=== PATIENT | male | born 1995 | race Caucasian/White ===

== ENCOUNTER 2018-04-22 17:49 | Inpatient (IN) | payer OTHER ==
[~2018-04-22] VITALS: Ht 180.3 cm; Wt 125.9 kg
[~2018-04-22 17:49] MED LIST: ONDA4SOL PO; PEPS PO; UDREG PO
[2018-04-22] MEDS ORDERED: ONDANSETRON 4 MG INJ IV STA (21:25)
[2018-04-22] MEDS ORDERED: morphine 4 MG/ML VIAL IV STA (21:25)
[2018-04-22] MEDS ORDERED: SOD CHLORIDE 0.9% 1,000 ML IV STA (21:25)
[2018-04-23] MEDS ORDERED: OMEP20CA16 PO (00:11)
[2018-04-23] MEDS ORDERED: BISM262O23 PO (00:11)
--- NOTE | 2018-04-23 00:37 | ERD ---
ER Documentation Chief Complaint Chief Complaint vomiting since 03/30/18; was seen @ [facility] HPI Is a 23-year-old male has been vomiting since March 30. He was seen in [facility] and here for intractable nausea vomiting. Mother took him home and over the past 3 days she states that he has not been eating or drinking at all. He has vomited 4-5 times nonbilious nonbloody. No fevers or chills. Patient himself is a very poor historian and there is concerned that he might have autism upon his last discharge. Mother is yet to follow-up with outpatient management for this issue. ROS All systems reviewed and are negative except as per history of present illness. Medications Home Meds Reported Medications Bismuth Subsalicylate* (Pepto-Bismol*) 262 Mg/15 Ml Oral.susp, 15 ML PO Q3H PRN for DISTENSION/GAS/BLOATING, ML 04/23/18 Discontinued Reported Medications Omeprazole* (Omeprazole*) 20 Mg Capsule.dr, 20 MG PO DAILY, #30 CAP 04/23/18 Discontinued Scripts Famotidine* (Pepcid* Susp) 40 Mg/5 Ml Oral.susp, 20 MG PO BID, #150 ML Prov:WENDY BOYLE M. 04/10/18 Metoclopramide* (Reglan*) 10 Mg/10 Ml Soln, 10 MG PO AC MEALS for 3 Days, #90 ML Prov:TG BOYLEO M. 04/10/18 Ondansetron Hcl* (Ondansetron Hcl* Liq) 4 Mg/5 Ml Solution, 4 MG PO Q6H PRN for NAUSEA AND/OR VOMITING, #75 ML Prov:WENDY BOYLE M. 04/10/18 Allergies Allergies: Coded Allergies: No Known Allergy (Unverified , 04/23/18) PMhx/Soc Medical and Surgical Hx: pt denies Surgical Hx History of Surgery: No Anesthesia Reaction: No Hx Neurological Disorder: No Hx Respiratory Disorders: No Hx Cardiac Disorders: No Hx Psychiatric Problems: No Hx Miscellaneous Medical Probl: Yes (N/V) Hx Alcohol Use: No Hx Substance Use: No Hx Tobacco Use: No Smoking Status: Never smoker Physical Exam Vitals Vital Signs Date Temp Pulse Resp B/P (MAP) Pulse Ox O2 O2 Flow FiO2 Time Delivery Rate 04/22/18 99.0 86 16 127/85 98 22:06 (99) 04/22/18 99.0 82 19 128/81 97 18:22 (97) Physical Exam Const: No acute distress Head: Atraumatic Eyes: Normal Conjunctiva ENT: Normal External Ears, Nose and Mouth. Neck: Full range of motion. No meningismus. Resp: Clear to auscultation bilaterally Cardio: Regular rate and rhythm, no murmurs Abd: Soft, non tender, non distended. Normal bowel sounds Skin: No petechiae or rashes Back: No midline or flank tenderness Ext: No cyanosis, or edema Neur: Awake and alert Psych: Normal Mood and Affect Result Diagram: 04/22/18214404/22/182144 Results 24 hrs Laboratory Tests Test 04/22/18 21:25 04/22/18 21:45 Blood Gas Specimen Source Blood arterial Arterial Blood Date Drawn 04/22/2018 10:09:03 PM Arterial Blood pH (Temp corrected) 7.477 Arterial Blood pCO2 (Temp correct) 28.2 mmhg Arterial Blood pO2 (Temp corrected) 115.6 mmHG Arterial Blood HCO3 20.4 mmol/L Arterial Blood Base Excess -1.5 mmol/L Arterial Blood Oxygen Saturation 98.3 mmHG Ishan Test ACCEPTAB Arterial Blood Gas Puncture Site Right Radial Arterial Blood Carboxyhemoglobin 0.2 % Arterial Blood Methemoglobin 0.3 % Blood Gas A-a O2 Differential 0.4 mmHg Oxyhemoglobin Percent 97.8 % Blood Gas Temperature 37.0 C Blood Gas Modality ROOM AIR FiO2 21.0 % Blood Gas Notified Whom MR Blood Gas Notified Time 04/22/2018 10:12:36 PM White Blood Count 12.8 10^3/ul Red Blood Count 5.41 10^6/ul Hemoglobin 17.8 g/dl Hematocrit 51.8 % Mean Corpuscular Volume 95.7 fl Mean Corpuscular Hemoglobin 32.9 pg Mean Corpuscular Hemoglobin Concent 34.4 g/dl Red Cell Distribution Width 13.2 % Platelet Count 186 10^3/UL Mean Platelet Volume 12.4 fl Immature Granulocytes % 0.400 % Neutrophils % 75.6 % Lymphocytes % 12.0 % Monocytes % 11.4 % Eosinophils % 0.2 % Basophils % 0.4 % Nucleated Red Blood Cells % 0.0 /100WBC Immature Granulocytes # 0.050 10^3/ul Neutrophils # 9.7 10^3/ul Lymphocytes # 1.5 10^3/ul Monocytes # 1.5 10^3/ul Eosinophils # 0.0 10^3/ul Basophils # 0.1 10^3/ul Nucleated Red Blood Cells # 0.0 10^3/ul Urine Color FLACO Urine Clarity SLIGHTLY CLOUDY Urine pH 6.0 Urine Specific [place] 1.032 Urine Ketones 2+ mg/dL Urine Nitrite NEGATIVE mg/dL Urine Bilirubin 2+ mg/dL Urine Urobilinogen 2+ mg/dL Urine Leukocyte Esterase NEGATIVE Rhiannon/ul Urine Microscopic RBC 7 /HPF Urine Microscopic WBC 11 /HPF Urine Mucus MANY /HPF Urine Hemoglobin NEGATIVE mg/dL Urine Glucose NEGATIVE mg/dL Urine Total Protein 2+ mg/dl Sodium Level 141 mmol/L Potassium Level 3.5 mmol/L Chloride Level 98 mmol/L Carbon Dioxide Level 25 mmol/L Anion Gap 18 Blood Urea Nitrogen 10 mg/dl Creatinine 0.84 mg/dl Est Glomerular Filtrat Rate mL/min > 60 mL/min Glucose Level 110 mg/dl Calcium Level 10.2 mg/dl Total Bilirubin 0.4 mg/dl Direct Bilirubin 0.00 mg/dl Indirect Bilirubin 0.4 mg/dl Aspartate Amino Transf (AST/SGOT) 63 IU/L Alanine Aminotransferase (ALT/SGPT) 34 IU/L Alkaline Phosphatase 84 IU/L Total Protein 9.1 g/dl Albumin 5.1 g/dl Globulin 4.00 g/dl Albumin/Globulin Ratio 1.27 Lipase 64 U/L Current Medications Medications Dose Sig/Izabel Start Time Status Last (Trade) Ordered Route PRN Stop Time Admin Dose Reason Admin Sodium 1,000 ml @ Q1H STAT 04/22/18 DC 04/22/18 Chloride 1,000 mls/hr IV 21:25 21:52 04/22/18 22:24 Morphine 4 mg ONCE STAT 04/22/18 DC 04/22/18 Sulfate IV 21:25 21:52 (morphine) 04/22/18 21:29 Ondansetron 4 mg ONCE STAT 04/22/18 DC 04/22/18 HCl (Zofran IV 21:25 21:52 Inj) 04/22/18 21:29 Procedures/MDM Emergency department course: Patient seen and evaluated. Intravenous access associated fluids given Zofran given. Blood work drawn off and sent. Arterial blood gas also ordered to check acid base status. EKG: Rate/Rhythm: [Normal Sinus Rhythm] QRS, ST, T-waves: [No changes consistent w/ acute ischemia] Impression: [No evidence of ischemia or arrhythmia] Chest X-ray 1V Interpreted by me: Soft Tissue: No acute abnormalities Bones: No acute abnormalities Mediastinum/Cardiac Silhouette/Lungs: [No acute abnormalities] Medical decision makin-year-old male with intractable nausea and vomiting. At this point patient will need be admitted for further evaluation and management. I spoken to Dr. Ennis of the hospitalist team who has currently accepted the patient to service. Departure Diagnosis: Primary Impression: Intractable vomiting with nausea Vomiting type: unspecified Qualified Codes: R11.2 - Nausea with vomiting, unspecified Condition: DUC Martinez Apr 23, 2018 00:37
[2018-04-23] MEDS ORDERED: DEXTROSE 5%-0.45% NACL 1,000 ML IV SCH (00:38)
[2018-04-23] MEDS ORDERED: ALBUTEROL/IPRATROPIUM (NEB) 3 ML AMP HHN PRN (01:00)
[2018-04-23] MEDS ORDERED: NACL 0.9% 3 ML SYG IV SCH (01:00)
[2018-04-23] MEDS ORDERED: ACETAMINOPHEN 325 MG TAB PO PRN (01:00)
[2018-04-23 01:20] VITALS: BP 118/61; PULSE 92; RESP 17
[2018-04-23 01:38] VITALS: Ht 180.3 cm; Wt 125.9 kg
--- NOTE | 2018-04-23 07:06 | HP ---
Date/Time of Note Date/Time of Note DATE: 04/23/18 TIME: 07:03 Assessment/Plan VTE Prophylaxis Risk score (from Nsg)>0 risk: 1 SCD applied (from Nsg): Yes Pharmacological prophylaxis: heparin Lines/Catheters IV Catheter Type (from Nrsg): Peripheral IV Assessment/Plan Assessment/Plan 23-year-old obese male with possible autism here with recurrent intractable nausea vomiting and inability to tolerate p.o. intake PLAN CT abdomen/pelvis without acute findings will place a GI consult for possible EGD Barium swallow jossue Stallworth Result Diagram: 04/23/18 0430 04/23/18 0430 Results 24hrs Laboratory Tests Test 04/22/18 21:25 04/22/18 21:45 04/23/18 04:30 Blood Gas Specimen Blood arterial Source Arterial Blood Date 04/22/2018 10:09:03 PM Drawn Arterial Blood pH 7.477 H (Temp corrected) Arterial Blood pCO2 28.2 L (Temp correct) Arterial Blood pO2 115.6 H (Temp corrected) Arterial Blood HCO3 20.4 L Arterial Blood Base -1.5 Excess Arterial Blood 98.3 H Oxygen Saturation Ishan Test ACCEPTAB Arterial Blood Gas Right Radial Puncture Site Arterial 0.2 Blood Carboxyhemoglobi n Arterial Blood 0.3 Methemoglobin Blood Gas A-a O2 0.4 L Differential Oxyhemoglobin Percent 97.8 Blood Gas Temperature 37.0 Blood Gas Modality ROOM AIR FiO2 21.0 Blood Gas Notified MR Whom Blood Gas Notified 04/22/2018 10:12:36 PM Time White Blood Count 12.8 #H 10.0 # Red Blood Count 5.41 # 4.53 L Hemoglobin 17.8 # 14.9 Hematocrit 51.8 # 43.6 Mean Corpuscular 95.7 96.2 Volume Mean Corpuscular 32.9 32.9 Hemoglobin Mean Corpuscular 34.4 34.2 Hemoglobin Concent Red Cell Distribution 13.2 13.2 Width Platelet Count 186 # 152 Mean Platelet Volume 12.4 H 12.6 H Immature Granulocytes 0.400 0.200 % Neutrophils % 75.6 71.3 Lymphocytes % 12.0 L 13.3 L Monocytes % 11.4 H 14.0 H Eosinophils % 0.2 0.8 Basophils % 0.4 0.4 Nucleated Red Blood 0.0 0.0 Cells % Immature Granulocytes 0.050 H 0.020 # Neutrophils # 9.7 H 7.1 Lymphocytes # 1.5 1.3 Monocytes # 1.5 H 1.4 H Eosinophils # 0.0 0.1 Basophils # 0.1 0.0 Nucleated Red Blood 0.0 0.0 Cells # Urine Color FLACO Urine Clarity SLIGHTLY CLOUDY A Urine pH 6.0 Urine Specific [place] 1.032 H Urine Ketones 2+ H Urine Nitrite NEGATIVE Urine Bilirubin 2+ H Urine Urobilinogen 2+ H Urine Leukocyte NEGATIVE Esterase Urine Microscopic RBC 7 H Urine Microscopic WBC 11 H Urine Mucus MANY A Urine Hemoglobin NEGATIVE Urine Glucose NEGATIVE Urine Total Protein 2+ H Sodium Level 141 140 Potassium Level 3.5 2.9 *L Chloride Level 98 101 Carbon Dioxide Level 25 26 Anion Gap 18 H 13 Blood Urea Nitrogen 10 9 Creatinine 0.84 0.67 Est Glomerular Filtrat > 60 > 60 Rate mL/min Glucose Level 110 104 Calcium Level 10.2 8.8 Total Bilirubin 0.4 0.3 Direct Bilirubin 0.00 0.00 Indirect Bilirubin 0.4 0.3 Aspartate Amino 63 H 45 Transf (AST/SGOT) Alanine 34 35 Aminotransferase (ALT/ SGPT) Alkaline Phosphatase 84 56 Total Protein 9.1 H 6.9 # Albumin 5.1 H 3.8 # Globulin 4.00 H 3.10 Albumin/Globulin Ratio 1.27 1.22 Lipase 64 Phosphorus Level 3.4 Magnesium Level 2.1 HPI/ROS Admit Date/Time Admit Date/Time Apr 23, 2018 at 00:12 Hx of Present Illness This is a 23-year-old obese male with a possible autism was brought to the ER for nausea/vomiting and inability to tolerate p.o. intake. Patient was admitted here for similar symptom about 2 weeks ago. At that time, his symptom slowly improved and was discharged. Reportedly, patient has not been eating or drinking for the past 3 days. When he presented to ER, CT abdomen/pelvis shows possible tiny gallstones otherwise no acute abdominopelvic findings. PMH/Family/Social Past Medical History Medications Current Medications Dextrose/Sodium Chloride 1,000 ml @ 125 mls/hr Q8H IV Last administered on 04/23/18at 02:06; Admin Dose 125 MLS/HR; Start 04/23/18 at 00:38 IV Flush (NS 3 ml) 3 ml PER PROTOCOL IV ; Start 04/23/18 at 01:00 Ondansetron HCl (Zofran Inj) 4 mg Q6H PRN IV NAUSEA/VOMITING; Start 04/23/18 at 01:00 Acetaminophen (Tylenol Tab) 650 mg Q6H PRN PO .PAIN 1-3 OR TEMP; Start 04/23/18 at 01:00 Famotidine (Pepcid Iv) 20 mg Q12 IV ; Start 04/23/18 at 09:00 Heparin Sodium (Porcine) (Heparin (5000 Units/1ml)) 5,000 unit Q12 SC ; Start 04/23/18 at 09:00 Albuterol/ Ipratropium (Duoneb) 3 ml Q2H RESP THERAPY PRN HHN SHORTNESS OF BREATH; Start 04/23/18 at 01:00 Potassium Chloride 100 ml @ 50 mls/hr Q2H IVPB ; Start 04/23/18 at 07:30; Stop 04/23/18 at 11:29 Coded Allergies: No Known Allergy (Unverified , 04/23/18) Past Surgical History Past Surgical Hx: no surgical history Family History Significant Family History: no pertinent family hx Social History Smoking Status: Never smoker Exam/Review of Systems Vital Signs Vitals Vital Signs Date Temp Pulse Resp B/P (MAP) Pulse Ox O2 O2 Flow FiO2 Time Delivery Rate 04/23/18 97.7 92 17 118/61 98 Room Air 01:20 (80) Intake and Output 04/22/18 04/22/18 04/23/18 1414:59 22:59 06:59 IntakeIntake Total 1375 ml BalanceBalance 1375 ml Exam Exam Past Surgical History Past Surgical Hx: other (see hpi) Family History Significant Family History: no pertinent family hx Social History Alcohol Use: other Smoking Status: Unknown if ever smoked Drug Use: none, other Exam Constitutional: other (no acute distress) Head: normocephalic, atraumatic Eyes: PERRL Respiratory: clear to auscultation Cardiovascular: regular rate and rhythm Gastrointestinal: soft DUC FLANAGAN MD Apr 23, 2018 07:06
[2018-04-23 07:30] VITALS: BP 121/59; PULSE 82; RESP 18
[2018-04-23] MEDS: POTASSIUM CHLORIDE 100 ML IVPB SCH ×2 (08:14→16:08)
[2018-04-23] MEDS: ONDANSETRON 4 MG INJ IV PRN ×2 (08:44→20:00)
[2018-04-23] MEDS ORDERED: FAMOTIDINE 20 MG INJ IV SCH (09:00)
[2018-04-23] MEDS: HEPARIN 5,000 UNIT/1 ML VIAL SC SCH ×2 (09:00→20:51)
[2018-04-23] MEDS: PANTOPRAZOLE 40 MG INJ IV SCH ×2 (10:14→18:49)
--- NOTE | 2018-04-23 13:52 | PN ---
Date/Time of Note Date/Time of Note DATE: 04/23/18 TIME: 13:52 Objective Vitals Vital Signs Date Temp Pulse Resp B/P (MAP) Pulse Ox O2 O2 Flow FiO2 Time Delivery Rate 04/23/18 98.2 82 18 121/59 99 Room Air 07:30 (79) Intake and Output 04/22/18 04/22/18 04/23/18 1515:00 23:00 07:00 IntakeIntake Total 1375 ml BalanceBalance 1375 ml Results Result Diagram: 04/23/1842904/23/18429 Medications Medications Current Medications Dextrose/Sodium Chloride 1,000 ml @ 125 mls/hr Q8H IV Last administered on 04/23/18at 02:06; Admin Dose 125 MLS/HR; Start 04/23/18 at 00:38 IV Flush (NS 3 ml) 3 ml PER PROTOCOL IV ; Start 04/23/18 at 01:00 Ondansetron HCl (Zofran Inj) 4 mg Q6H PRN IV NAUSEA/VOMITING Last administered on 04/23/18at 08:44; Admin Dose 4 MG; Start 04/23/18 at 01:00 Acetaminophen (Tylenol Tab) 650 mg Q6H PRN PO .PAIN 1-3 OR TEMP; Start 04/23/18 at 01:00 Heparin Sodium (Porcine) (Heparin (5000 Units/1ml)) 5,000 unit Q12 SC ; Start 04/23/18 at 09:00 Albuterol/ Ipratropium (Duoneb) 3 ml Q2H RESP THERAPY PRN HHN SHORTNESS OF BREATH; Start 04/23/18 at 01:00 Pantoprazole (Protonix Iv) 40 mg BID@06,18 IV Last administered on 04/23/18at 10:14; Admin Dose 40 MG; Start 04/23/18 at 09:30 VTE Prophylaxis Risk score (from Nsg)>0 risk: 0 SCD applied (from Nsg): Yes Lines/Catheters IV Catheter Type: [place] in Place: No Assessment/Plan Hospital Course Subjective Patient has no abdominal pain but still complains of nausea Objective Physical exam General: Patient is laying in bed and answers questions appropriately but intermittently Mentation: Patient is alert but questionable orientation Head: Normocephalic atraumatic Eyes: EOMI, pupils reactive to light Neck: Supple, nontender, midline Respiratory: Clear to auscultation bilaterally Cardiovascular: regular rate, no obvious murmurs Gastrointestinal: non-tender to palpation, bowel sounds heard. Neurological: Moves all extremities spontaneously Skin: No new skin lesions Assessment and plan Nausea, vomiting, inability to tolerate p.o. -Patient unable to tolerate barium for swallow eval, -GI consulted -CT abdomen pelvis without acute findings -Protonix twice a day for now -IV fluid Autism spectrum -Monitor, chronic -Patient does speak just very intermittently Electrolyte derangement -Replete as needed Disposition -Follow GI recommendations ASHISH PRESLEY Apr 23, 2018 13:52
[2018-04-23 14:56] VITALS: BP 116/62; PULSE 88; RESP 19
[2018-04-23] MEDS: D5W-0.45 NACL + KCL 20 MEQ 1,000 ML IV SCH (16:48)
--- NOTE | 2018-04-23 16:50 | CONS ---
Assessment/Plan Assessment/Plan Hospital Course (Demo Recall) Summary Assessment and Plan: Assessment: Persistent nausea/vomiting Obesity Possible diagnosis of autism Plan: Continue PPI BID Anti-emetic therapy CT without evidence of ileus or obstruction- will add Reglan EGD tomorrow Endoscopy - risks/benefits/alternatives/indications of procedure and s edation/anesthesia discussed with patient who states understanding and gives informed consent to proceed. Consider further testing i.e. video swallow gastric emptying study when patient able to tolerate Po intake and if EGD is negative Patient seen in collaboration with Dr. Castaneda CC: DOMITILA CASTANEDA MD ; Consultation Date/Type/Reason Admit Date/Time Apr 23, 2018 at 00:12 Date of Consultation: Apr 23, 2018 Type of Consult GI Reason for Consultation Persistent nausea/vomiting Date/Time of Note DATE: 04/23/18 TIME: 16:45 Hx of Present Illness This is a 23-year-old male with possible history of autism who presented to [facility] ED with complaints of persistent nausea/vomiting. Patient states symptoms initially began at the end of February however symptoms began to worsen. He notes nausea/vomiting is not aggravated by anything in particular the pain is better with antiemetic medication. He denies hematemesis, hemato chezia, or melena. Patient denies marijuana use however states his brother smokes frequently near him. Discussed plan for upper endoscopy reviewed risk/benefits of sedation and procedure patient verbalized understanding is agreeable to procedure. He feels he is able to tolerate ice chips, will order clear liquid dit today with plan to change to NPO after 04/24/18 at 0800. Review of Systems: A 12 system, review was conducted and is negative except as noted in the HPI or here. Past Medical History Home Meds Reported Medications Bismuth Subsalicylate* (Pepto-Bismol*) 262 Mg/15 Ml Oral.susp, 15 ML PO Q3H PRN for DISTENSION/GAS/BLOATING, ML 04/23/18 Discontinued Reported Medications Omeprazole* (Omeprazole*) 20 Mg Capsule.dr, 20 MG PO DAILY, #30 CAP 04/23/18 Discontinued Scripts Famotidine* (Pepcid* Susp) 40 Mg/5 Ml Oral.susp, 20 MG PO BID, #150 ML Prov:WENDY BOYLE 04/10/18 Metoclopramide* (Reglan*) 10 Mg/10 Ml Soln, 10 MG PO AC MEALS for 3 Days, #90 ML Prov:WENDY BOYLE. 04/10/18 Ondansetron Hcl* (Ondansetron Hcl* Liq) 4 Mg/5 Ml Solution, 4 MG PO Q6H PRN for NAUSEA AND/OR VOMITING, #75 ML Prov:WENDY BOYLE M. 04/10/18 Medications Current Medications IV Flush (NS 3 ml) 3 ml PER PROTOCOL IV ; Start 04/23/18 at 01:00 Ondansetron HCl (Zofran Inj) 4 mg Q6H PRN IV NAUSEA/VOMITING Last administered on 04/23/18at 08:44; Admin Dose 4 MG; Start 04/23/18 at 01:00 Acetaminophen (Tylenol Tab) 650 mg Q6H PRN PO .PAIN 1-3 OR TEMP; Start 04/23/18 at 01:00 Heparin Sodium (Porcine) (Heparin (5000 Units/1ml)) 5,000 unit Q12 SC ; Start 04/23/18 at 09:00 Albuterol/ Ipratropium (Duoneb) 3 ml Q2H RESP THERAPY PRN HHN SHORTNESS OF BREATH; Start 04/23/18 at 01:00 Pantoprazole (Protonix Iv) 40 mg BID@06,18 IV Last administered on 04/23/18at 10:14; Admin Dose 40 MG; Start 04/23/18 at 09:30 Potassium Chloride/Dextrose/ Sod Cl 1,000 ml @ 125 mls/hr Q8H IV ; Start 04/23/18 at 15:30 Allergies: Coded Allergies: No Known Allergy (Unverified , 04/23/18) Past Surgical History Past Surgical Hx: no surgical history Social History Smoking Status: Never smoker Exam/Review of Systems Exam Vitals Vital Signs Date Temp Pulse Resp B/P (MAP) Pulse Ox O2 O2 Flow FiO2 Time Delivery Rate 04/23/18 97.2 88 19 116/62 96 14:56 (80) 04/23/18 Room Air 07:30 Intake and Output 04/22/18 04/22/18 04/23/18 1515:00 23:00 07:00 IntakeIntake Total 1375 ml BalanceBalance 1375 ml Exam PHYSICAL EXAMINATION: GENERAL: Obese, alert & oriented x 3, in no acute distress SKIN: No lesions. EYES: Pupils equal reactive to light, no discharge. EARS/NOSE AND THROAT: Ears normal. NECK: Supple CHEST: Inspection within normal limits. CARDIOVASCULAR: Heart: Regular rate and rhythm RESPIRATORY: Lungs clear to auscultation GASTROINTESTINAL AND LIVER: Abdomen: Soft, non tenderness, non-distended, no hernias, no masses, no organomegaly, no ascites, no guarding, no rebound tenderness, normoactive bowel sounds. Rectal: Deferred. EXTREMITIES: No cyanosis, clubbing or edema. Results Result Diagram: 04/23/18 0430 04/23/18 0430 Results 24hrs Laboratory Tests Test 04/22/18 21:25 04/22/18 21:45 04/23/18 04:30 Blood Gas Specimen Blood arterial Source Arterial Blood Date 04/22/2018 10:09:03 PM Drawn Arterial Blood pH 7.477 H (Temp corrected) Arterial Blood pCO2 28.2 L (Temp correct) Arterial Blood pO2 115.6 H (Temp corrected) Arterial Blood HCO3 20.4 L Arterial Blood Base -1.5 Excess Arterial Blood 98.3 H Oxygen Saturation Ishan Test ACCEPTAB Arterial Blood Gas Right Radial Puncture Site Arterial 0.2 Blood Carboxyhemoglobi n Arterial Blood 0.3 Methemoglobin Blood Gas A-a O2 0.4 L Differential Oxyhemoglobin Percent 97.8 Blood Gas Temperature 37.0 Blood Gas Modality ROOM AIR FiO2 21.0 Blood Gas Notified MR Whom Blood Gas Notified 04/22/2018 10:12:36 PM Time White Blood Count 12.8 #H 10.0 # Red Blood Count 5.41 # 4.53 L Hemoglobin 17.8 # 14.9 Hematocrit 51.8 # 43.6 Mean Corpuscular 95.7 96.2 Volume Mean Corpuscular 32.9 32.9 Hemoglobin Mean Corpuscular 34.4 34.2 Hemoglobin Concent Red Cell Distribution 13.2 13.2 Width Platelet Count 186 # 152 Mean Platelet Volume 12.4 H 12.6 H Immature Granulocytes 0.400 0.200 % Neutrophils % 75.6 71.3 Lymphocytes % 12.0 L 13.3 L Monocytes % 11.4 H 14.0 H Eosinophils % 0.2 0.8 Basophils % 0.4 0.4 Nucleated Red Blood 0.0 0.0 Cells % Immature Granulocytes 0.050 H 0.020 # Neutrophils # 9.7 H 7.1 Lymphocytes # 1.5 1.3 Monocytes # 1.5 H 1.4 H Eosinophils # 0.0 0.1 Basophils # 0.1 0.0 Nucleated Red Blood 0.0 0.0 Cells # Urine Color FLACO Urine Clarity SLIGHTLY CLOUDY A Urine pH 6.0 Urine Specific [place] 1.032 H Urine Ketones 2+ H Urine Nitrite NEGATIVE Urine Bilirubin 2+ H Urine Urobilinogen 2+ H Urine Leukocyte NEGATIVE Esterase Urine Microscopic RBC 7 H Urine Microscopic WBC 11 H Urine Mucus MANY A Urine Hemoglobin NEGATIVE Urine Glucose NEGATIVE Urine Total Protein 2+ H Sodium Level 141 140 Potassium Level 3.5 2.9 *L Chloride Level 98 101 Carbon Dioxide Level 25 26 Anion Gap 18 H 13 Blood Urea Nitrogen 10 9 Creatinine 0.84 0.67 Est Glomerular Filtrat > 60 > 60 Rate mL/min Glucose Level 110 104 Calcium Level 10.2 8.8 Total Bilirubin 0.4 0.3 Direct Bilirubin 0.00 0.00 Indirect Bilirubin 0.4 0.3 Aspartate Amino 63 H 45 Transf (AST/SGOT) Alanine 34 35 Aminotransferase (ALT/ SGPT) Alkaline Phosphatase 84 56 Total Protein 9.1 H 6.9 # Albumin 5.1 H 3.8 # Globulin 4.00 H 3.10 Albumin/Globulin Ratio 1.27 1.22 Lipase 64 Phosphorus Level 3.4 Magnesium Level 2.1 Medications Medication Current Medications IV Flush (NS 3 ml) 3 ml PER PROTOCOL IV ; Start 04/23/18 at 01:00 Ondansetron HCl (Zofran Inj) 4 mg Q6H PRN IV NAUSEA/VOMITING Last administered on 04/23/18at 08:44; Admin Dose 4 MG; Start 04/23/18 at 01:00 Acetaminophen (Tylenol Tab) 650 mg Q6H PRN PO .PAIN 1-3 OR TEMP; Start 04/23/18 at 01:00 Heparin Sodium (Porcine) (Heparin (5000 Units/1ml)) 5,000 unit Q12 SC ; Start 04/23/18 at 09:00 Albuterol/ Ipratropium (Duoneb) 3 ml Q2H RESP THERAPY PRN HHN SHORTNESS OF BREATH; Start 04/23/18 at 01:00 Pantoprazole (Protonix Iv) 40 mg BID@,18 IV Last administered on 04/23/18at 10:14; Admin Dose 40 MG; Start 04/23/18 at 09:30 Potassium Chloride/Dextrose/ Sod Cl 1,000 ml @ 125 mls/hr Q8H IV ; Start 04/23/18 at 15:30 SANDRA MATHIAS Apr 23, 2018 16:50
[2018-04-23] MEDS ORDERED: METOCLOPRAMIDE 10 MG INJ IV PRN (17:30)
[2018-04-23 19:15] VITALS: BP 109/61; PULSE 84; RESP 16
[2018-04-24] VITALS (10 sets, daily range): BP systolic 96–114; BP diastolic 50–66; PULSE 69–81; RESP 18–25
[2018-04-24] MEDS: D5W-0.45 NACL + KCL 20 MEQ 1,000 ML IV SCH ×4 (00:32→21:55)
[2018-04-24] MEDS ORDERED: LORAZEPAM 2 MG INJ IV ONE (01:30)
[2018-04-24] MEDS: PANTOPRAZOLE 40 MG INJ IV SCH ×2 (05:23→18:17)
[2018-04-24] MEDS ORDERED: PROPOFOL 200 MG INJ ONE (07:00)
--- NOTE | 2018-04-24 12:06 | PREAC ---
Date/Time of Note Date/Time of Note DATE: 04/24/18 TIME: 12:04 Anesthesia Eval and Record Evaluation Time Pre-Procedure Interview DATE: 04/24/18 TIME: 12:04 Age 23 Sex male NPO: 8 hrs Preoperative diagnosis intractable nausea vomiting Planned procedure EGD Past Medical History Past Medical History: Includes GI: Obesity, Morbid obesity Surgery & Anesthesia Issues No known issue Meds Anticoagulation: No Beta Seymour within 24 hr: No Reason Beta Seymour not given: Pt. not on B-Seymour Reported Medications Bismuth Subsalicylate* (Pepto-Bismol*) 262 Mg/15 Ml Oral.susp, 15 ML PO Q3H PRN for DISTENSION/GAS/BLOATING, ML 04/23/18 Discontinued Reported Medications Omeprazole* (Omeprazole*) 20 Mg Capsule.dr, 20 MG PO DAILY, #30 CAP 04/23/18 Discontinued Scripts Famotidine* (Pepcid* Susp) 40 Mg/5 Ml Oral.susp, 20 MG PO BID, #150 ML Prov:WENDY BOYLE 04/10/18 Metoclopramide* (Reglan*) 10 Mg/10 Ml Soln, 10 MG PO AC MEALS for 3 Days, #90 ML Prov:WENDY BOYLE . 04/10/18 Ondansetron Hcl* (Ondansetron Hcl* Liq) 4 Mg/5 Ml Solution, 4 MG PO Q6H PRN for NAUSEA AND/OR VOMITING, #75 ML Prov:WENDY BYOLE . 04/10/18 Current Medications IV Flush (NS 3 ml) 3 ml PER PROTOCOL IV ; Start 04/23/18 at 01:00 Ondansetron HCl (Zofran Inj) 4 mg Q6H PRN IV NAUSEA/VOMITING Last administered on 04/23/18at 20:00; Admin Dose 4 MG; Start 04/23/18 at 01:00 Acetaminophen (Tylenol Tab) 650 mg Q6H PRN PO .PAIN 1-3 OR TEMP; Start 04/23/18 at 01:00 Albuterol/ Ipratropium (Duoneb) 3 ml Q2H RESP THERAPY PRN HHN SHORTNESS OF BREATH; Start 04/23/18 at 01:00 Pantoprazole (Protonix Iv) 40 mg BID@06,18 IV Last administered on 04/24/18at 05:23; Admin Dose 40 MG; Start 04/23/18 at 09:30 Potassium Chloride/Dextrose/ Sod Cl 1,000 ml @ 125 mls/hr Q8H IV Last administered on 04/24/18at 08:34; Admin Dose 125 MLS/HR; Start 04/23/18 at 15:30 Metoclopramide HCl (Reglan) 10 mg Q6H PRN IV NAUSEA AND/OR VOMITING Last administered on 04/24/18at 00:36; Admin Dose 10 MG; Start 04/23/18 at 17:30 Heparin Sodium (Porcine) (Heparin (5000 Units/1ml)) 5,000 unit Q12 SC ; Start 04/24/18 at 21:00 Meds reviewed: Yes Allergies Coded Allergies: No Known Allergy (Unverified , 04/23/18) Allergies Reviewed: Yes Labs/Studies Labs Reviewed: Reviewed by anesthesiologist Result Diagram: 04/24/18 0439 04/24/18 0439 Laboratory Tests 04/24/18 04:39 test: N/A Studies: CXR (The lungs are clear.) Pre-procedure Exam Last vitals Vital Signs Date Temp Pulse Resp B/P (MAP) Pulse Ox O2 O2 Flow FiO2 Time Delivery Rate 04/24/18 98.0 69 18 107/58 94 Room Air 08:02 (74) Airway: Adequate mouth opening Mallampati: Mallampati II Teeth: Normal Lung: Normal Heart: Normal ASA Physical Status ASA physical status: 2 Emergency: None Planned Anesthetic General/MAC: MAC Pre-operative Attestations Prior to commencing anesthesia and surgery, the patient was re-evaluated, there was verification of: *The patient's identity *The results of appropriate recent lab work and preoperative vital signs *The above evaluation not changing prior to induction *Anesthetic plan, risk benefits, alternative and complications discussed with patient/family; questions answered; patient/family understands, accepts and wishes to proceed. ROSE RABAGO Apr 24, 2018 12:06
[2018-04-24] MEDS ORDERED: METOCLOPRAMIDE 10 MG INJ IV PRN ×2 (12:30→13:30)
[2018-04-24] MEDS ORDERED: ONDANSETRON 4 MG INJ IV PRN ×2 (12:30→13:30)
--- NOTE | 2018-04-24 12:38 | PN ---
Date/Time of Note Date/Time of Note DATE: 04/24/18 TIME: 12:37 Objective Vitals Vital Signs Date Temp Pulse Resp B/P (MAP) Pulse Ox O2 O2 Flow FiO2 Time Delivery Rate 04/24/18 98.0 69 18 107/58 94 Room Air 08:02 (74) Intake and Output 04/23/18 04/23/18 04/24/18 1515:00 23:00 07:00 IntakeIntake Total 770 ml 1625 ml BalanceBalance 770 ml 1625 ml Results Result Diagram: 04/24/18 0439 04/24/18 0439 Medications Medications Current Medications IV Flush (NS 3 ml) 3 ml PER PROTOCOL IV ; Start 04/23/18 at 01:00 Ondansetron HCl (Zofran Inj) 4 mg Q6H PRN IV NAUSEA/VOMITING Last administered on 04/23/18at 20:00; Admin Dose 4 MG; Start 04/23/18 at 01:00 Acetaminophen (Tylenol Tab) 650 mg Q6H PRN PO .PAIN 1-3 OR TEMP; Start 04/23/18 at 01:00 Albuterol/ Ipratropium (Duoneb) 3 ml Q2H RESP THERAPY PRN HHN SHORTNESS OF BREATH; Start 04/23/18 at 01:00 Pantoprazole (Protonix Iv) 40 mg BID@06,18 IV Last administered on 04/24/18at 05:23; Admin Dose 40 MG; Start 04/23/18 at 09:30 Potassium Chloride/Dextrose/ Sod Cl 1,000 ml @ 125 mls/hr Q8H IV Last administered on 04/24/18at 08:34; Admin Dose 125 MLS/HR; Start 04/23/18 at 15:30 Metoclopramide HCl (Reglan) 10 mg Q6H PRN IV NAUSEA AND/OR VOMITING Last adm inistered on 04/24/18at 00:36; Admin Dose 10 MG; Start 04/23/18 at 17:30 Heparin Sodium (Porcine) (Heparin (5000 Units/1ml)) 5,000 unit Q12 SC ; Start 04/24/18 at 21:00 Ondansetron HCl (Zofran Inj) 4 mg PACU ORDER PRN IV NAUSEA/VOMITING; Start 04/24/18 at 12:30; Stop 04/24/18 at 17:00 Metoclopramide HCl (Reglan) 10 mg PACU ORDER PRN IV NAUSEA/VOMITING; Start 04/24/18 at 12:30; Stop 04/24/18 at 17:00 VTE Prophylaxis Risk score (from Nsg)>0 risk: 1 SCD applied (from Ns): Yes Lines/Catheters IV Catheter Type: Kapadia in Place: No Assessment/Plan Hospital Course Subjective Patient has no abdominal pain but still complains of nausea Objective Physical exam General: Patient is laying in bed and answers questions appropriately but intermittently Mentation: Patient is alert but questionable orientation Head: Normocephalic atraumatic Eyes: EOMI, pupils reactive to light Neck: Supple, nontender, midline Respiratory: Clear to auscultation bilaterally Cardiovascular: regular rate, no obvious murmurs Gastrointestinal: non-tender to palpation, bowel sounds heard. Neurological: Moves all extremities spontaneously Skin: No new skin lesions Assessment and plan Nausea, vomiting, inability to tolerate p.o. -Patient unable to tolerate barium for swallow eval, -GI consulted -CT abdomen pelvis without acute findings -Protonix twice a day for now -IV fluid Autism spectrum -Monitor, chronic -Patient does speak just very intermittently Electrolyte derangement -Replete as needed Disposition -EGD today ASHISH PRESLEY Apr 24, 2018 12:38
--- NOTE | 2018-04-24 13:22 | PAC ---
Date/Time of Note Date/Time of Note DATE: 04/24/18 TIME: 13:21 Post-Anesthesia Notes Post-Anesthesia Note Last documented vital signs Vital Signs Date Temp Pulse Resp B/P (MAP) Pulse Ox O2 O2 Flow FiO2 Time Delivery Rate 04/24/18 98.0 69 18 107/58 94 Room Air 13:20 (74) Activity: WNL Respiratory function: WNL Cardiovascular function: WNL Mental status: Baseline Pain reasonably controlled: Yes Hydration appropriate: Yes Nausea/Vomiting absent: Yes YOJANA BUNN MD Apr 24, 2018 13:22
[2018-04-24] MEDS ORDERED: MIDAZOLAM 1 MG/ML 2 ML INJ IV PRN (13:30)
[2018-04-24] MEDS ORDERED: LORAZEPAM 2 MG INJ IV PRN (13:30)
[2018-04-24] MEDS ORDERED: FENTAnyl 50 MCG/ML VIAL IV PRN ×2 (13:30)
[2018-04-24] MEDS: METOCLOPRAMIDE 10 MG INJ IV SCH ×2 (18:17→23:27)
[2018-04-24] MEDS: HEPARIN 5,000 UNIT/1 ML VIAL SC SCH (20:14)
[2018-04-25 02:15] VITALS: BP 112/57; PULSE 78; RESP 18
[2018-04-25] MEDS: D5W-0.45 NACL + KCL 20 MEQ 1,000 ML IV SCH ×3 (05:58→21:41)
[2018-04-25] MEDS: PANTOPRAZOLE 40 MG INJ IV SCH ×2 (06:00→17:29)
[2018-04-25] MEDS: METOCLOPRAMIDE 10 MG INJ IV SCH ×4 (06:00→23:30)
[2018-04-25 07:34] VITALS: BP 110/71; PULSE 73; RESP 18
[2018-04-25] MEDS: HEPARIN 5,000 UNIT/1 ML VIAL SC SCH ×2 (09:07→21:47)
--- NOTE | 2018-04-25 12:03 | PN ---
Date/Time of Note Date/Time of Note DATE: 04/25/18 TIME: 12:02 Objective Vitals Vital Signs Date Temp Pulse Resp B/P (MAP) Pulse Ox O2 O2 Flow FiO2 Time Delivery Rate 04/25/18 98.2 73 18 110/71 95 Room Air 07:34 (84) 04/24/18 10 13:16 Intake and Output 04/24/18 04/24/18 04/25/18 1515:00 23:00 07:00 IntakeIntake Total 375 ml 1820 ml 1000 ml BalanceBalance 375 ml 1820 ml 1000 ml Results Result Diagram: 04/25/1851504/25/18515 Medications Medications Current Medications IV Flush (NS 3 ml) 3 ml PER PROTOCOL IV ; Start 04/23/18 at 01:00 Ondansetron HCl (Zofran Inj) 4 mg Q6H PRN IV NAUSEA/VOMITING Last administered on 04/23/18at 20:00; Admin Dose 4 MG; Start 04/23/18 at 01:00 Acetaminophen (Tylenol Tab) 650 mg Q6H PRN PO .PAIN 1-3 OR TEMP; Start 04/23/18 at 01:00 Albuterol/ Ipratropium (Duoneb) 3 ml Q2H RESP THERAPY PRN HHN SHORTNESS OF BREATH; Start 04/23/18 at 01:00 Pantoprazole (Protonix Iv) 40 mg BID@06,18 IV Last administered on 04/25/18at 06:00; Admin Dose 40 MG; Start 04/23/18 at 09:30 Potassium Chloride/Dextrose/ Sod Cl 1,000 ml @ 125 mls/hr Q8H IV Last administered on 04/25/18at 05:58; Admin Dose 125 MLS/HR; Start 04/23/18 at 15:30 Heparin Sodium (Porcine) (Heparin (5000 Units/1ml)) 5,000 unit Q12 SC Last administered on 04/25/18at 09:07; Admin Dose 5,000 UNIT; Start 04/24/18 at 21:00 Metoclopramide HCl (Reglan) 10 mg Q6H IV Last administered on 04/25/18at 11:58; Admin Dose 10 MG; Start 04/24/18 at 17:30 VTE Prophylaxis Risk score (from Nsg)>0 risk: 1 SCD applied (from Nsg): Yes Lines/Catheters IV Catheter Type: Kapadia in Place: No Assessment/Plan Hospital Course Subjective Patient has no abdominal pain but still complains of nausea Objective Physical exam General: Patient is laying in bed and answers questions appropriately but intermittently Mentation: Patient is alert but questionable orientation Head: Normocephalic atraumatic Eyes: EOMI, pupils reactive to light Neck: Supple, nontender, midline Respiratory: Clear to auscultation bilaterally Cardiovascular: regular rate, no obvious murmurs Gastrointestinal: non-tender to palpation, bowel sounds heard. Neurological: Moves all extremities spontaneously Skin: No new skin lesions Assessment and plan Nausea, vomiting, inability to tolerate p.o. -Patient unable to tolerate barium for swallow eval, -GI consulted, EGD findings consistent with moderate ulcerative gastritis -CT abdomen pelvis without acute findings -Protonix twice a day for now -IV fluid -Continue Reglan scheduled -Continue Carafate Autism spectrum -Monitor, chronic Electrolyte derangement -Replete as needed Disposition -Monitor diet, DC when able to tolerate diet. ASHISH PRESLEY Apr 25, 2018 12:03
[2018-04-25] MEDS: SUCRALFATE (100 MG/ML) 10ML CUP PO SCH ×3 (13:38→21:38)
--- NOTE | 2018-04-25 14:24 | PN ---
Date/Time of Note Date/Time of Note DATE: 04/25/18 TIME: 14:20 Assessment/Plan VTE Prophylaxis Risk score (from Ns)>0 risk: 1 SCD applied (from Ns): Yes Pharmacological prophylaxis: other (scds) Lines/Catheters IV [facility] Type (from [facility] Urinary Cath still in place: No Assessment/Plan Hospital Course Summary Assessment and Plan: Assessment: Persistent nausea/vomiting EGD 04/24/18 Mild distal esophagitis Moderate erosive gastritis. Rule out H. pylori infection biopsies obtained Otherwise normal EGD Obesity Possible diagnosis of autism Plan: Continue PPI BID Carafate added Advance diet as tolerated Await bx results Patient seen in collaboration with Dr. Castaneda/Naty Subjective: Course reviewed with nursing staff Patient interviewed and examined All labs, imaging and other results reviewed The patient resting in bed, x1 episodes of emesis today Pt states he is scared to go home. Currently no c/o n.v or abd pain Pt will stay over night, reassess sx tomorrow, PHYSICAL EXAMINATION: GENERAL: Obese, alert & oriented x 3, in no acute distress SKIN: No lesions. EYES: Pupils equal reactive to light, no discharge. EARS/NOSE AND THROAT: Ears normal. NECK: Supple CHEST: Inspection within normal limits. CARDIOVASCULAR: Heart: Regular rate and rhythm RESPIRATORY: Lungs clear to auscultation GASTROINTESTINAL AND LIVER: Abdomen: Soft, non tenderness, non-distended, no hernias, no masses, no organomegaly, no ascites, no guarding, no rebound tenderness, normoactive bowel sounds. Rectal: Deferred. EXTREMITIES: No cyanosis, clubbing or edema. Result Diagram: 04/25/18 0516 04/25/18 0516 Results 24hrs Laboratory Tests Test 04/25/18 05:16 White Blood Count 6.8 # Red Blood Count 4.15 L Hemoglobin 13.8 L Hematocrit 40.6 L Mean Corpuscular Volume 97.8 Mean Corpuscular Hemoglobin 33.3 H Mean Corpuscular Hemoglobin Concent 34.0 Red Cell Distribution Width 13.6 Platelet Count 129 L Mean Platelet Volume 12.8 H Immature Granulocytes % 0.300 Neutrophils % 63.4 Lymphocytes % 20.9 Monocytes % 14.0 H Eosinophils % 1.0 Basophils % 0.4 Nucleated Red Blood Cells % 0.0 Immature Granulocytes # 0.020 Neutrophils # 4.3 Lymphocytes # 1.4 Monocytes # 1.0 H Eosinophils # 0.1 Basophils # 0.0 Nucleated Red Blood Cells # 0.0 Sodium Level 142 Potassium Level 3.7 Chloride Level 105 Carbon Dioxide Level 27 Anion Gap 10 Blood Urea Nitrogen 4 L Creatinine 0.79 Est Glomerular Filtrat Rate mL/min > 60 Glucose Level 100 Calcium Level 8.7 Phosphorus Level 3.3 Magnesium Level 1.9 Exam/Review of Systems Exam Vitals Vital Signs Date Temp Pulse Resp B/P (MAP) Pulse Ox O2 O2 Flow FiO2 Time Delivery Rate 04/25/18 98.2 73 18 110/71 95 Room Air 07:34 (84) 04/24/18 10 13:16 Intake and Output 04/24/18 04/24/18 04/25/18 1515:00 23:00 07:00 IntakeIntake Total 375 ml 1820 ml 1000 ml BalanceBalance 375 ml 1820 ml 1000 ml Results Results 24hrs Laboratory Tests Test 04/25/18 05:16 White Blood Count 6.8 # Red Blood Count 4.15 L Hemoglobin 13.8 L Hematocrit 40.6 L Mean Corpuscular Volume 97.8 Mean Corpuscular Hemoglobin 33.3 H Mean Corpuscular Hemoglobin Concent 34.0 Red Cell Distribution Width 13.6 Platelet Count 129 L Mean Platelet Volume 12.8 H Immature Granulocytes % 0.300 Neutrophils % 63.4 Lymphocytes % 20.9 Monocytes % 14.0 H Eosinophils % 1.0 Basophils % 0.4 Nucleated Red Blood Cells % 0.0 Immature Granulocytes # 0.020 Neutrophils # 4.3 Lymphocytes # 1.4 Monocytes # 1.0 H Eosinophils # 0.1 Basophils # 0.0 Nucleated Red Blood Cells # 0.0 Sodium Level 142 Potassium Level 3.7 Chloride Level 105 Carbon Dioxide Level 27 Anion Gap 10 Blood Urea Nitrogen 4 L Creatinine 0.79 Est Glomerular Filtrat Rate mL/min > 60 Glucose Level 100 Calcium Level 8.7 Phosphorus Level 3.3 Magnesium Level 1.9 Medications Medication Current Medications IV Flush (NS 3 ml) 3 ml PER PROTOCOL IV ; Start 04/23/18 at 01:00 Ondansetron HCl (Zofran Inj) 4 mg Q6H PRN IV NAUSEA/VOMITING Last administered on 04/23/18at 20:00; Admin Dose 4 MG; Start 04/23/18 at 01:00 Acetaminophen (Tylenol Tab) 650 mg Q6H PRN PO .PAIN 1-3 OR TEMP; Start 04/23/18 at 01:00 Albuterol/ Ipratropium (Duoneb) 3 ml Q2H RESP THERAPY PRN HHN SHORTNESS OF BREATH; Start 04/23/18 at 01:00 Pantoprazole (Protonix Iv) 40 mg BID@06,18 IV Last administered on 04/25/18 06:00; Admin Dose 40 MG; Start 04/23/18 at 09:30 Potassium Chloride/Dextrose/ Sod Cl 1,000 ml @ 125 mls/hr Q8H IV Last administered on 04/25/18 13:39; Admin Dose 125 MLS/HR; Start 04/23/18 at 15:30 Heparin Sodium (Porcine) (Heparin (5000 Units/1ml)) 5,000 unit Q12 SC Last administered on 04/25/18 09:07; Admin Dose 5,000 UNIT; Start 04/24/18 at 21:00 Metoclopramide HCl (Reglan) 10 mg Q6H IV Last administered on 04/25/18at 11:58; Admin Dose 10 MG; Start 04/24/18 at 17:30 Sucralfate (Carafate Susp) 1 gm QID PO Last administered on 04/25/18at 13:38; Admin Dose 1 GM; Start 04/25/18 at 13:00 SANDRA MATHIAS Apr 25, 2018 14:24
[2018-04-25 15:30] VITALS: BP 114/56; PULSE 65; RESP 16
[2018-04-25 19:53] VITALS: BP 114/61; PULSE 63; RESP 18
[2018-04-26 02:52] VITALS: BP 130/75; PULSE 73; RESP 18
[2018-04-26] MEDS: PANTOPRAZOLE 40 MG INJ IV SCH ×2 (05:15→17:40)
[2018-04-26] MEDS: METOCLOPRAMIDE 10 MG INJ IV SCH ×3 (05:15→17:37)
[2018-04-26] MEDS: D5W-0.45 NACL + KCL 20 MEQ 1,000 ML IV SCH ×3 (05:19→22:05)
[2018-04-26 08:10] VITALS: BP 109/61; PULSE 74; RESP 18
[2018-04-26] MEDS: SUCRALFATE (100 MG/ML) 10ML CUP PO SCH ×4 (09:00→22:06)
[2018-04-26] MEDS: HEPARIN 5,000 UNIT/1 ML VIAL SC SCH ×2 (09:17→22:15)
--- NOTE | 2018-04-26 11:55 | PN ---
Date/Time of Note Date/Time of Note DATE: 04/26/18 TIME: 11:55 Objective Vitals Vital Signs Date Temp Pulse Resp B/P (MAP) Pulse Ox O2 O2 Flow FiO2 Time Delivery Rate 04/26/18 98.4 74 18 109/61 94 Room Air 08:10 (77) 04/24/18 10 13:16 Intake and Output 04/25/18 04/25/18 04/26/18 1515:00 23:00 07:00 IntakeIntake Total 1240 ml 400 ml 1120 ml OutputOutput Total 100 ml BalanceBalance 1240 ml 400 ml 1020 ml Results Result Diagram: 04/26/18 0423 04/26/18 0423 Medications Medications Current Medications IV Flush (NS 3 ml) 3 ml PER PROTOCOL IV ; Start 04/23/18 at 01:00 Ondansetron HCl (Zofran Inj) 4 mg Q6H PRN IV NAUSEA/VOMITING Last administered on 04/23/18at 20:00; Admin Dose 4 MG; Start 04/23/18 at 01:00 Acetaminophen (Tylenol Tab) 650 mg Q6H PRN PO .PAIN 1-3 OR TEMP; Start 04/23/18 at 01:00 Albuterol/ Ipratropium (Duoneb) 3 ml Q2H RESP THERAPY PRN HHN SHORTNESS OF BREATH; Start 04/23/18 at 01:00 Pantoprazole (Protonix Iv) 40 mg BID@06,18 IV Last administered on 04/26/18at 05:15; Admin Dose 40 MG; Start 04/23/18 at 09:30 Potassium Chloride/Dextrose/ Sod Cl 1,000 ml @ 125 mls/hr Q8H IV Last administered on 04/26/18at 05:19; Admin Dose 125 MLS/HR; Start 04/23/18 at 15:30 Heparin Sodium (Porcine) (Heparin (5000 Units/1ml)) 5,000 unit Q12 SC Last administered on 04/26/18at 09:17; Admin Dose 5,000 UNIT; Start 04/24/18 at 21:00 Metoclopramide HCl (Reglan) 10 mg Q6H IV Last administered on 04/26/18at 05:15; Admin Dose 10 MG; Start 04/24/18 at 17:30 Sucralfate (Carafate Susp) 1 gm QID PO Last administered on 04/25/18at 21:38; Admin Dose 1 GM; Start 04/25/18 at 13:00 VTE Prophylaxis Risk score (from Ns)>0 risk: 1 SCD applied (from Ns): Yes Lines/Catheters IV Catheter Type: Kapad[place] in Place: No Assessment/Plan Hospital Course Subjective Patient has no abdominal pain but still complains of nausea Objective Physical exam General: Patient is laying in bed and answers questions appropriately but intermittently Mentation: Patient is alert but questionable orientation Head: Normocephalic atraumatic Eyes: EOMI, pupils reactive to light Neck: Supple, nontender, midline Respiratory: Clear to auscultation bilaterally Cardiovascular: regular rate, no obvious murmurs Gastrointestinal: non-tender to palpation, bowel sounds heard. Neurological: Moves all extremities spontaneously Skin: No new skin lesions Assessment and plan Nausea, vomiting, inability to tolerate p.o. 2/2 moderate ulcerative gastritis -Patient unable to tolerate barium for swallow eval, -GI consulted, EGD findings consistent with moderate ulcerative gastritis -CT abdomen pelvis without acute findings -Protonix twice a day for now -IV fluid -Continue Reglan scheduled -Continue Carafate Autism spectrum -Monitor, chronic Electrolyte derangement -Replete as needed Disposition -Monitor diet, DC when able to tolerate diet. ASHISH PRESLEY Apr 26, 2018 11:55
[2018-04-26 14:54] VITALS: BP 109/57; PULSE 82; RESP 18
--- NOTE | 2018-04-26 18:06 | PN ---
Date/Time of Note Date/Time of Note DATE: 04/26/18 TIME: 17:59 Assessment/Plan VTE Prophylaxis Risk score (from Ns)>0 risk: 1 SCD applied (from Ns): Yes Pharmacological prophylaxis: heparin Lines/Catheters IV Catheter Type (from [facility]): Urinary Cath still in place: No Assessment/Plan Assessment/Plan Assessment: Persistent nausea/vomiting EGD 04/24/18 Mild distal esophagitis Moderate erosive gastritis. Bx is negative for H. pylori infection Otherwise normal EGD Obesity Possible diagnosis of autism Plan: NM gastric emptying scan Continue PPI BID and Carafate Continue Reglan Advance diet as tolerated Patient seen in collaboration with Dr. Alfonso Subjective: Course reviewed with nursing staff Patient interviewed and examined All labs, imaging and other results reviewed The patient is c/o nausea and vomiting. He had 2 episodes of vomiting. Denies h/o smoking MJ. His nausea is aggravated with talking and laying down. Will order gastric emptying study to r/o gastroparesis. PHYSICAL EXAMINATION: GENERAL: Obese, alert & oriented x 3, in no acute distress SKIN: No lesions. EYES: Pupils equal reactive to light, no discharge. EARS/NOSE AND THROAT: Ears normal. NECK: Supple CHEST: Inspection within normal limits. CARDIOVASCULAR: Heart: Regular rate and rhythm RESPIRATORY: Lungs clear to auscultation GASTROINTESTINAL AND LIVER: Abdomen: Soft, non tenderness, non-distended, no hernias, no masses, no organomegaly, no ascites, no guarding, no rebound tenderness, normoactive bowel sounds. Rectal: Deferred. EXTREMITIES: No cyanosis, clubbing or edema. Result Diagram: 04/26/18 0423 04/26/18 0423 Results 24hrs Laboratory Tests Test 04/26/18 04:23 White Blood Count 7.8 Red Blood Count 4.21 L Hemoglobin 14.1 Hematocrit 41.2 L Mean Corpuscular Volume 97.9 Mean Corpuscular Hemoglobin 33.5 H Mean Corpuscular Hemoglobin Concent 34.2 Red Cell Distribution Width 13.3 Platelet Count 131 L Mean Platelet Volume 12.9 H Immature Granulocytes % 0.500 H Neutrophils % 69.8 Lymphocytes % 15.1 Monocytes % 13.3 H Eosinophils % 0.9 Basophils % 0.4 Nucleated Red Blood Cells % 0.0 Immature Granulocytes # 0.040 H Neutrophils # 5.4 Lymphocytes # 1.2 Monocytes # 1.0 H Eosinophils # 0.1 Basophils # 0.0 Nucleated Red Blood Cells # 0.0 Sodium Level 141 Potassium Level 3.6 Chloride Level 104 Carbon Dioxide Level 26 Anion Gap 11 Blood Urea Nitrogen 2 L Creatinine 0.68 Est Glomerular Filtrat Rate mL/min > 60 Glucose Level 96 Calcium Level 8.8 Phosphorus Level 2.2 #L Magnesium Level 1.7 CC: DOMITILA YANG MD ; Exam/Review of Systems Exam Vitals Vital Signs Date Temp Pulse Resp B/P (MAP) Pulse Ox O2 O2 Flow FiO2 Time Delivery Rate 04/26/18 98.3 82 18 109/57 94 Room Air 14:54 (74) 04/24/18 10 13:16 Intake and Output 04/25/18 04/25/18 04/26/18 1515:00 23:00 07:00 IntakeIntake Total 1240 ml 400 ml 1120 ml OutputOutput Total 100 ml BalanceBalance 1240 ml 400 ml 1020 ml Results Results 24hrs Laboratory Tests Test 04/26/18 04:23 White Blood Count 7.8 Red Blood Count 4.21 L Hemoglobin 14.1 Hematocrit 41.2 L Mean Corpuscular Volume 97.9 Mean Corpuscular Hemoglobin 33.5 H Mean Corpuscular Hemoglobin Concent 34.2 Red Cell Distribution Width 13.3 Platelet Count 131 L Mean Platelet Volume 12.9 H Immature Granulocytes % 0.500 H Neutrophils % 69.8 Lymphocytes % 15.1 Monocytes % 13.3 H Eosinophils % 0.9 Basophils % 0.4 Nucleated Red Blood Cells % 0.0 Immature Granulocytes # 0.040 H Neutrophils # 5.4 Lymphocytes # 1.2 Monocytes # 1.0 H Eosinophils # 0.1 Basophils # 0.0 Nucleated Red Blood Cells # 0.0 Sodium Level 141 Potassium Level 3.6 Chloride Level 104 Carbon Dioxide Level 26 Anion Gap 11 Blood Urea Nitrogen 2 L Creatinine 0.68 Est Glomerular Filtrat Rate mL/min > 60 Glucose Level 96 Calcium Level 8.8 Phosphorus Level 2.2 #L Magnesium Level 1.7 Medications Medication Current Medications IV Flush (NS 3 ml) 3 ml PER PROTOCOL IV ; Start 04/23/18 at 01:00 Ondansetron HCl (Zofran Inj) 4 mg Q6H PRN IV NAUSEA/VOMITING Last administered on 04/23/18at 20:00; Admin Dose 4 MG; Start 04/23/18 at 01:00 Acetaminophen (Tylenol Tab) 650 mg Q6H PRN PO .PAIN 1-3 OR TEMP; Start 04/23/18 at 01:00 Albuterol/ Ipratropium (Duoneb) 3 ml Q2H RESP THERAPY PRN HHN SHORTNESS OF BREATH; Start 04/23/18 at 01:00 Pantoprazole (Protonix Iv) 40 mg BID@06,18 IV Last administered on 04/26/18 17:40; Admin Dose 40 MG; Start 04/23/18 at 09:30 Potassium Chloride/Dextrose/ Sod Cl 1,000 ml @ 125 mls/hr Q8H IV Last administered on 04/26/18 14:41; Admin Dose 125 MLS/HR; Start 04/23/18 at 15:30 Heparin Sodium (Porcine) (Heparin (5000 Units/1ml)) 5,000 unit Q12 SC Last administered on 04/26/18 09:17; Admin Dose 5,000 UNIT; Start 04/24/18 at 21:00 Metoclopramide HCl (Reglan) 10 mg Q6H IV Last administered on 04/26/18 17:37; Admin Dose 10 MG; Start 04/24/18 at 17:30 Sucralfate (Carafate Susp) 1 gm QID PO Last administered on 04/26/18 17:37; Admin Dose 1 GM; Start 04/25/18 at 13:00 MAXWELL MURPHY NP Apr 26, 2018 18:06
[2018-04-26 20:03] VITALS: BP 123/74; PULSE 72; RESP 20
[2018-04-27] MEDS: METOCLOPRAMIDE 10 MG INJ IV SCH ×5 (01:08→23:07)
[2018-04-27] MEDS: ONDANSETRON 4 MG INJ IV PRN ×2 (01:48→23:46)
[2018-04-27 02:02] VITALS: BP 118/62; PULSE 80; RESP 18
[2018-04-27] MEDS: PANTOPRAZOLE 40 MG INJ IV SCH ×2 (05:23→17:45)
[2018-04-27] MEDS: D5W-0.45 NACL + KCL 20 MEQ 1,000 ML IV SCH ×3 (05:28→23:26)
[2018-04-27 07:30] VITALS: BP 118/58; PULSE 68; RESP 18
[2018-04-27] MEDS: SUCRALFATE (100 MG/ML) 10ML CUP PO SCH ×5 (09:11→21:07)
[2018-04-27] MEDS: HEPARIN 5,000 UNIT/1 ML VIAL SC SCH ×2 (09:13→21:08)
--- NOTE | 2018-04-27 10:56 | PN ---
Date/Time of Note Date/Time of Note DATE: 04/27/18 TIME: 10:55 Objective Vitals Vital Signs Date Temp Pulse Resp B/P (MAP) Pulse Ox O2 O2 Flow FiO2 Time Delivery Rate 04/27/18 97.5 68 18 118/58 93 Room Air 07:30 (78) 04/24/18 10 13:16 Intake and Output 04/26/18 04/26/18 04/27/18 1515:00 23:00 07:00 IntakeIntake Total 1000 ml 1640 ml 1480 ml OutputOutput Total 30 ml 100 ml BalanceBalance 970 ml 1640 ml 1380 ml Results Result Diagram: 04/27/18 0424 04/27/18 0424 Medications Medications Current Medications IV Flush (NS 3 ml) 3 ml PER PROTOCOL IV ; Start 04/23/18 at 01:00 Ondansetron HCl (Zofran Inj) 4 mg Q6H PRN IV NAUSEA/VOMITING Last administered on 04/27/18at 01:48; Admin Dose 4 MG; Start 04/23/18 at 01:00 Acetaminophen (Tylenol Tab) 650 mg Q6H PRN PO .PAIN 1-3 OR TEMP; Start 04/23/18 at 01:00 Albuterol/ Ipratropium (Duoneb) 3 ml Q2H RESP THERAPY PRN HHN SHORTNESS OF BREATH; Start 04/23/18 at 01:00 Pantoprazole (Protonix Iv) 40 mg BID@06,18 IV Last administered on 04/27/18at 05:23; Admin Dose 40 MG; Start 04/23/18 at 09:30 Potassium Chloride/Dextrose/ Sod Cl 1,000 ml @ 125 mls/hr Q8H IV Last administered on 04/27/18at 05:28; Admin Dose 125 MLS/HR; Start 04/23/18 at 15:30 Heparin Sodium (Porcine) (Heparin (5000 Units/1ml)) 5,000 unit Q12 SC Last administered on 04/27/18at 09:13; Admin Dose 5,000 UNIT; Start 04/24/18 at 21:00 Metoclopramide HCl (Reglan) 10 mg Q6H IV Last administered on 04/27/18at 05:24; Admin Dose 10 MG; Start 04/24/18 at 17:30 Sucralfate (Carafate Susp) 1 gm QID PO Last administered on 04/27/18at 09:11; Admin Dose 1 GM; Start 04/25/18 at 13:00 VTE Prophylaxis Risk score (from Ns)>0 risk: 1 SCD applied (from Ns): Yes Lines/Catheters IV Catheter Type: Kap[place] in Place: No Assessment/Plan Hospital Course Subjective Patient has no abdominal pain but still complains of nausea Objective Physical exam General: Patient is laying in bed and answers questions appropriately but intermittently Mentation: Patient is alert but questionable orientation Head: Normocephalic atraumatic Eyes: EOMI, pupils reactive to light Neck: Supple, nontender, midline Respiratory: Clear to auscultation bilaterally Cardiovascular: regular rate, no obvious murmurs Gastrointestinal: non-tender to palpation, bowel sounds heard. Neurological: Moves all extremities spontaneously Skin: No new skin lesions Assessment and plan Nausea, vomiting, inability to tolerate p.o. 2/2 moderate ulcerative gastritis -Patient unable to tolerate barium for swallow eval, -GI consulted, EGD findings consistent with moderate ulcerative gastritis -CT abdomen pelvis without acute findings -Protonix twice a day for now -IV fluid -Continue Reglan scheduled -Continue Carafate -gastric emptying study pending Autism spectrum -Monitor, chronic Electrolyte derangement -Replete as needed Disposition -Monitor diet, DC when able to tolerate diet. -gastric emptying study ordered per ASHISH MCMILLAN Apr 27, 2018 10:56
--- NOTE | 2018-04-27 12:42 | PN ---
Date/Time of Note Date/Time of Note DATE: 04/27/18 TIME: 12:40 Assessment/Plan VTE Prophylaxis Risk score (from Ns)>0 risk: 1 SCD applied (from Ns): Yes Pharmacological prophylaxis: other (scds) Lines/Catheters IV Catheter Type (from [facility]): Urinary Cath still in place: No Assessment/Plan Hospital Course Assessment/Plan Assessment: Persistent nausea/vomiting EGD 04/24/18 Mild distal esophagitis Moderate erosive gastritis. Bx is negative for H. pylori infection Otherwise normal EGD Obesity Possible diagnosis of autism Plan: NM gastric emptying scan- pending Continue PPI BID and Carafate Continue Reglan Advance diet as tolerated Patient seen in collaboration with Dr. Alfonso Subjective: Course reviewed with nursing staff Patient interviewed and examined All labs, imaging and other results reviewed The patient is c/o nausea and vomiting. He states he has a poor appetite, currently refusing Carafate, discussed importance of taking medication Pt states n/v prompted by coughing, encourage deep breaths and ambulation PHYSICAL EXAMINATION: GENERAL: Obese, alert & oriented x 3, in no acute distress SKIN: No lesions. EYES: Pupils equal reactive to light, no discharge. EARS/NOSE AND THROAT: Ears normal. NECK: Supple CHEST: Inspection within normal limits. CARDIOVASCULAR: Heart: Regular rate and rhythm RESPIRATORY: Lungs clear to auscultation GASTROINTESTINAL AND LIVER: Abdomen: Soft, non tenderness, non-distended, no hernias, no masses, no organomegaly, no ascites, no guarding, no rebound tenderness, normoactive bowel sounds. Rectal: Deferred. EXTREMITIES: No cyanosis, clubbing or edema. Result Diagram: 04/27/18 0424 04/27/18 0424 Results 24hrs Laboratory Tests Test 04/27/18 04:24 White Blood Count 9.1 Red Blood Count 4.38 L Hemoglobin 14.4 Hematocrit 42.9 Mean Corpuscular Volume 97.9 Mean Corpuscular Hemoglobin 32.9 Mean Corpuscular Hemoglobin Concent 33.6 Red Cell Distribution Width 13.1 Platelet Count 128 L Mean Platelet Volume 12.6 H Immature Granulocytes % 0.600 H Neutrophils % 70.0 Lymphocytes % 12.9 L Monocytes % 15.1 H Eosinophils % 1.0 Basophils % 0.4 Nucleated Red Blood Cells % 0.0 Immature Granulocytes # 0.050 H Neutrophils # 6.4 Lymphocytes # 1.2 Monocytes # 1.4 H Eosinophils # 0.1 Basophils # 0.0 Nucleated Red Blood Cells # 0.0 Sodium Level 141 Potassium Level 3.5 Chloride Level 104 Carbon Dioxide Level 27 Anion Gap 10 Blood Urea Nitrogen 2 L Creatinine 0.75 Est Glomerular Filtrat Rate mL/min > 60 Glucose Level 97 Calcium Level 8.9 Phosphorus Level 2.1 L Magnesium Level 1.7 Exam/Review of Systems Exam Vitals Vital Signs Date Temp Pulse Resp B/P (MAP) Pulse Ox O2 O2 Flow FiO2 Time Delivery Rate 04/27/18 97.5 68 18 118/58 93 Room Air 07:30 (78) 04/24/18 10 13:16 Intake and Output 04/26/18 04/26/18 04/27/18 1515:00 23:00 07:00 IntakeIntake Total 1000 ml 1640 ml 1480 ml OutputOutput Total 30 ml 100 ml BalanceBalance 970 ml 1640 ml 1380 ml Results Results 24hrs Laboratory Tests Test 04/27/18 04:24 White Blood Count 9.1 Red Blood Count 4.38 L Hemoglobin 14.4 Hematocrit 42.9 Mean Corpuscular Volume 97.9 Mean Corpuscular Hemoglobin 32.9 Mean Corpuscular Hemoglobin Concent 33.6 Red Cell Distribution Width 13.1 Platelet Count 128 L Mean Platelet Volume 12.6 H Immature Granulocytes % 0.600 H Neutrophils % 70.0 Lymphocytes % 12.9 L Monocytes % 15.1 H Eosinophils % 1.0 Basophils % 0.4 Nucleated Red Blood Cells % 0.0 Immature Granulocytes # 0.050 H Neutrophils # 6.4 Lymphocytes # 1.2 Monocytes # 1.4 H Eosinophils # 0.1 Basophils # 0.0 Nucleated Red Blood Cells # 0.0 Sodium Level 141 Potassium Level 3.5 Chloride Level 104 Carbon Dioxide Level 27 Anion Gap 10 Blood Urea Nitrogen 2 L Creatinine 0.75 Est Glomerular Filtrat Rate mL/min > 60 Glucose Level 97 Calcium Level 8.9 Phosphorus Level 2.1 L Magnesium Level 1.7 Medications Medication Current Medications IV Flush (NS 3 ml) 3 ml PER PROTOCOL IV ; Start 04/23/18 at 01:00 Ondansetron HCl (Zofran Inj) 4 mg Q6H PRN IV NAUSEA/VOMITING Last administered on 04/27/18at 01:48; Admin Dose 4 MG; Start 04/23/18 at 01:00 Acetaminophen (Tylenol Tab) 650 mg Q6H PRN PO .PAIN 1-3 OR TEMP; Start 04/23/18 at 01:00 Albuterol/ Ipratropium (Duoneb) 3 ml Q2H RESP THERAPY PRN HHN SHORTNESS OF BREATH; Start 04/23/18 at 01:00 Pantoprazole (Protonix Iv) 40 mg BID@06,18 IV Last administered on 04/27/18 05:23; Admin Dose 40 MG; Start 04/23/18 at 09:30 Potassium Chloride/Dextrose/ Sod Cl 1,000 ml @ 125 mls/hr Q8H IV Last administered on 04/27/18 05:28; Admin Dose 125 MLS/HR; Start 04/23/18 at 15:30 Heparin Sodium (Porcine) (Heparin (5000 Units/1ml)) 5,000 unit Q12 SC Last administered on 04/27/18 09:13; Admin Dose 5,000 UNIT; Start 04/24/18 at 21:00 Metoclopramide HCl (Reglan) 10 mg Q6H IV Last administered on 04/27/18 11:52; Admin Dose 10 MG; Start 04/24/18 at 17:30 Sucralfate (Carafate Susp) 1 gm QID PO Last administered on 04/27/18 09:11; Admin Dose 1 GM; Start 04/25/18 at 13:00 SANDRA MATHIAS Apr 27, 2018 12:42
[2018-04-27 14:51] VITALS: BP 117/56; PULSE 62; RESP 16
[2018-04-27 20:23] VITALS: BP 120/59; PULSE 71; RESP 17
[2018-04-28 01:44] VITALS: BP 124/65; PULSE 69; RESP 17
[2018-04-28] MEDS: METOCLOPRAMIDE 10 MG INJ IV SCH ×4 (06:24→23:34)
[2018-04-28] MEDS: PANTOPRAZOLE 40 MG INJ IV SCH ×2 (06:25→17:48)
[2018-04-28] MEDS: ONDANSETRON 4 MG INJ IV PRN (07:53)
[2018-04-28] MEDS: HEPARIN 5,000 UNIT/1 ML VIAL SC SCH ×2 (07:57→21:40)
[2018-04-28 07:59] VITALS: BP 126/73; PULSE 78; RESP 18
[2018-04-28] MEDS: D5W-0.45 NACL + KCL 20 MEQ 1,000 ML IV SCH ×3 (09:39→23:36)
[2018-04-28] MEDS: SUCRALFATE (100 MG/ML) 10ML CUP PO SCH ×4 (10:20→21:37)
--- NOTE | 2018-04-28 13:09 | PN ---
Date/Time of Note Date/Time of Note DATE: 04/28/18 TIME: 13:04 Objective Vitals Vital Signs Date Temp Pulse Resp B/P (MAP) Pulse Ox O2 O2 Flow FiO2 Time Delivery Rate 04/28/18 97.3 78 18 126/73 99 07:59 (90) 04/27/18 Room Air 07:30 04/24/18 10 13:16 Intake and Output 04/27/18 04/27/18 04/28/18 1515:00 23:00 07:00 IntakeIntake Total 1340 ml 1950 ml OutputOutput Total 100 ml BalanceBalance 1340 ml 1850 ml Results Result Diagram: 04/28/18 0436 04/28/18 0436 Medications Medications Current Medications IV Flush (NS 3 ml) 3 ml PER PROTOCOL IV ; Start 04/23/18 at 01:00 Ondansetron HCl (Zofran Inj) 4 mg Q6H PRN IV NAUSEA/VOMITING Last administered on 04/28/18at 07:53; Admin Dose 4 MG; Start 04/23/18 at 01:00 Acetaminophen (Tylenol Tab) 650 mg Q6H PRN PO .PAIN 1-3 OR TEMP; Start 04/23/18 at 01:00 Albuterol/ Ipratropium (Duoneb) 3 ml Q2H RESP THERAPY PRN HHN SHORTNESS OF BREATH; Start 04/23/18 at 01:00 Pantoprazole (Protonix Iv) 40 mg BID@06,18 IV Last administered on 04/28/18at 06:25; Admin Dose 40 MG; Start 04/23/18 at 09:30 Potassium Chloride/Dextrose/ Sod Cl 1,000 ml @ 125 mls/hr Q8H IV Last administered on 04/28/18at 09:39; Admin Dose 125 MLS/HR; Start 04/23/18 at 15:30 Heparin Sodium (Porcine) (Heparin (5000 Units/1ml)) 5,000 unit Q12 SC Last administered on 04/28/18at 07:57; Admin Dose 5,000 UNIT; Start 04/24/18 at 21:00 Metoclopramide HCl (Reglan) 10 mg Q6H IV Last administered on 04/28/18at 10:20; Admin Dose 10 MG; Start 04/24/18 at 17:30 Sucralfate (Carafate Susp) 1 gm QID PO Last administered on 04/28/18at 10:20; Admin Dose 1 GM; Start 04/25/18 at 13:00 VTE Prophylaxis Risk score (from Ns)>0 risk: 1 SCD applied (from Ns): Yes Lines/Catheters IV Catheter Type: Kapad[place] in Place: No Assessment/Plan Hospital Course Subjective Patient has no abdominal pain but still complains of nausea, unable to tolerate gastric emptying study today. Objective Physical exam General: Patient is laying in bed and answers questions appropriately but intermittently Mentation: Patient is alert but questionable orientation Head: Normocephalic atraumatic Eyes: EOMI, pupils reactive to light Neck: Supple, nontender, midline Respiratory: Clear to auscultation bilaterally Cardiovascular: regular rate, no obvious murmurs Gastrointestinal: non-tender to palpation, bowel sounds heard. Neurological: Moves all extremities spontaneously Skin: No new skin lesions Assessment and plan Nausea, vomiting, inability to tolerate p.o. 2/2 moderate ulcerative gastritis -Patient unable to tolerate barium for swallow eval, -GI consulted, EGD findings consistent with moderate ulcerative gastritis -CT abdomen pelvis without acute findings -Protonix twice a day for now -IV fluid -Continue Reglan scheduled -Continue Carafate -gastric emptying study unable to be completed due to emesis Autism spectrum -Monitor, chronic Electrolyte derangement -Replete as needed Disposition -Monitor diet, DC when able to tolerate diet. -At this time I do not believe that patient's emesis is caused by GI issues, his ulcerative gastritis likely has some issue however his emesis now appears to be more psych related, will consult psych, tele-psych order in. ASHISH PRESLEY Apr 28, 2018 13:09
--- NOTE | 2018-04-28 14:05 | PN ---
Date/Time of Note Date/Time of Note DATE: 04/28/18 TIME: 13:59 Assessment/Plan VTE Prophylaxis Risk score (from Ns)>0 risk: 1 SCD applied (from Ns): Yes Pharmacological prophylaxis: heparin Lines/Catheters IV [facility] ([facility] Urinary Cath still in place: No Assessment/Plan Hospital Course Assessment: Persistent nausea/vomiting - questionable psychogenic component EGD 04/24/18 Mild distal esophagitis Moderate erosive gastritis. Bx is negative for H. pylori infection Otherwise normal EGD Obesity Possible diagnosis of autism Plan: Psychiatric eval pending. NM gastric emptying scan- unable to tolerate Continue PPI BID and Carafate Will d/c Reglan Add compazine Advance diet as tolerated Patient seen in collaboration with Dr. Thomas Subjective: Course reviewed with nursing staff Patient interviewed and examined All labs, imaging and other results reviewed The patient continues to complain of nausea and vomiting. Attempted gastric emptying test and was unable to complete due to vomiting. He denies any abdominal pain, constipation or other symptoms. PHYSICAL EXAMINATION: GENERAL: Obese, alert & oriented x 3, in no acute distress SKIN: No lesions. EYES: Pupils equal reactive to light, no discharge. EARS/NOSE AND THROAT: Ears normal. NECK: Supple CHEST: Inspection within normal limits. CARDIOVASCULAR: Heart: Regular rate and rhythm RESPIRATORY: Lungs clear to auscultation GASTROINTESTINAL AND LIVER: Abdomen: Soft, non tenderness, non-distended, no hernias, no masses, no organomegaly, no ascites, no guarding, no rebound tenderness, normoactive bowel sounds. Rectal: Deferred. EXTREMITIES: No cyanosis, clubbing or edema. Result Diagram: 04/28/18 0436 04/28/18 0436 Results 24hrs Laboratory Tests Test 04/28/18 04:36 White Blood Count 9.6 Red Blood Count 4.52 L Hemoglobin 14.9 Hematocrit 44.1 Mean Corpuscular Volume 97.6 Mean Corpuscular Hemoglobin 33.0 Mean Corpuscular Hemoglobin Concent 33.8 Red Cell Distribution Width 13.2 Platelet Count 142 Mean Platelet Volume 12.4 H Immature Granulocytes % 0.600 H Neutrophils % 68.5 Lymphocytes % 14.1 L Monocytes % 15.5 H Eosinophils % 0.9 Basophils % 0.4 Nucleated Red Blood Cells % 0.0 Immature Granulocytes # 0.060 H Neutrophils # 6.6 Lymphocytes # 1.4 Monocytes # 1.5 H Eosinophils # 0.1 Basophils # 0.0 Nucleated Red Blood Cells # 0.0 Sodium Level 140 Potassium Level 3.9 Chloride Level 103 Carbon Dioxide Level 25 Anion Gap 12 Blood Urea Nitrogen 2 L Creatinine 0.78 Est Glomerular Filtrat Rate mL/min > 60 Glucose Level 94 Calcium Level 9.0 Phosphorus Level 1.7 L Magnesium Level 1.6 L CC: SENG THOMAS ; Exam/Review of Systems Exam Vitals Vital Signs Date Temp Pulse Resp B/P (MAP) Pulse Ox O2 O2 Flow FiO2 Time Delivery Rate 04/28/18 97.3 78 18 126/73 99 07:59 (90) 04/27/18 Room Air 07:30 04/24/18 10 13:16 Intake and Output 04/27/18 04/27/18 04/28/18 1515:00 23:00 07:00 IntakeIntake Total 1340 ml 1950 ml OutputOutput Total 100 ml BalanceBalance 1340 ml 1850 ml Results Results 24hrs Laboratory Tests Test 04/28/18 04:36 White Blood Count 9.6 Red Blood Count 4.52 L Hemoglobin 14.9 Hematocrit 44.1 Mean Corpuscular Volume 97.6 Mean Corpuscular Hemoglobin 33.0 Mean Corpuscular Hemoglobin Concent 33.8 Red Cell Distribution Width 13.2 Platelet Count 142 Mean Platelet Volume 12.4 H Immature Granulocytes % 0.600 H Neutrophils % 68.5 Lymphocytes % 14.1 L Monocytes % 15.5 H Eosinophils % 0.9 Basophils % 0.4 Nucleated Red Blood Cells % 0.0 Immature Granulocytes # 0.060 H Neutrophils # 6.6 Lymphocytes # 1.4 Monocytes # 1.5 H Eosinophils # 0.1 Basophils # 0.0 Nucleated Red Blood Cells # 0.0 Sodium Level 140 Potassium Level 3.9 Chloride Level 103 Carbon Dioxide Level 25 Anion Gap 12 Blood Urea Nitrogen 2 L Creatinine 0.78 Est Glomerular Filtrat Rate mL/min > 60 Glucose Level 94 Calcium Level 9.0 Phosphorus Level 1.7 L Magnesium Level 1.6 L Medications Medication Current Medications IV Flush (NS 3 ml) 3 ml PER PROTOCOL IV ; Start 04/23/18 at 01:00 Ondansetron HCl (Zofran Inj) 4 mg Q6H PRN IV NAUSEA/VOMITING Last administered on 04/28/18at 07:53; Admin Dose 4 MG; Start 04/23/18 at 01:00 Acetaminophen (Tylenol Tab) 650 mg Q6H PRN PO .PAIN 1-3 OR TEMP; Start 04/23/18 at 01:00 Albuterol/ Ipratropium (Duoneb) 3 ml Q2H RESP THERAPY PRN HHN SHORTNESS OF BREATH; Start 04/23/18 at 01:00 Pantoprazole (Protonix Iv) 40 mg BID@06,18 IV Last administered on 04/28/18 06:25; Admin Dose 40 MG; Start 04/23/18 at 09:30 Potassium Chloride/Dextrose/ Sod Cl 1,000 ml @ 125 mls/hr Q8H IV Last administered on 04/28/18 09:39; Admin Dose 125 MLS/HR; Start 04/23/18 at 15:30 Heparin Sodium (Porcine) (Heparin (5000 Units/1ml)) 5,000 unit Q12 SC Last administered on 04/28/18 07:57; Admin Dose 5,000 UNIT; Start 04/24/18 at 21:00 Metoclopramide HCl (Reglan) 10 mg Q6H IV Last administered on 04/28/18 10:20; Admin Dose 10 MG; Start 04/24/18 at 17:30 Sucralfate (Carafate Susp) 1 gm QID PO Last administered on 04/28/18 10:20; Admin Dose 1 GM; Start 04/25/18 at 13:00 YOSELIN ARRIETA NP Apr 28, 2018 14:05
[2018-04-28] MEDS: PROCHLORPERAZINE 10 MG INJ IV PRN (14:54)
[2018-04-28 19:17] VITALS: BP 129/67; PULSE 75; RESP 16
[2018-04-29] MEDS: ONDANSETRON 4 MG INJ IV PRN (00:08)
[2018-04-29 01:18] VITALS: BP 140/76; PULSE 99; RESP 16
[2018-04-29] MEDS: METOCLOPRAMIDE 10 MG INJ IV SCH ×4 (05:15→23:30)
[2018-04-29] MEDS: PANTOPRAZOLE 40 MG INJ IV SCH ×2 (05:55→18:00)
[2018-04-29 07:12] VITALS: BP 108/55; PULSE 80; RESP 18
[2018-04-29] MEDS: D5W-0.45 NACL + KCL 20 MEQ 1,000 ML IV SCH ×3 (07:47→23:30)
[2018-04-29] MEDS: HEPARIN 5,000 UNIT/1 ML VIAL SC SCH (07:50)
[2018-04-29] MEDS: SUCRALFATE (100 MG/ML) 10ML CUP PO SCH ×4 (07:50→21:00)
[2018-04-29] MEDS ORDERED: MAGNESIUM SULFATE 2 GM/50 ML 50 ML IVPB ONE (12:30)
--- NOTE | 2018-04-29 13:10 | PN ---
Date/Time of Note Date/Time of Note DATE: 04/29/18 TIME: 13:07 Assessment/Plan VTE Prophylaxis Risk score (from Ns)>0 risk: 1 SCD applied (from Ns): No SCD contraindicated: other (scds) Pharmacological prophylaxis: other (scds) Lines/Catheters IV C[facility]ter Type (from [facility]): Peripheral IV Urinary Cath still in place: No Assessment/Plan Hospital Course Hospital Course Assessment: Persistent nausea/vomiting - questionable psychogenic component EGD 04/24/18 Mild distal esophagitis Moderate erosive gastritis. Bx is negative for H. pylori infection Otherwise normal EGD Obesity Possible diagnosis of autism Plan: Psychiatric eval pending. Continue PPI BID and Carafate Add compazine Advance diet as tolerated No new GI recommendations Patient seen in collaboration with Dr. Alfonso Subjective: Course reviewed with nursing staff Patient interviewed and examined All labs, imaging and other results reviewed Pt with persistent retching and cough, no c/o nausea no vomiting noted. Does not appear to be GI source, pt now not taking medication as he feels it [place] not help him. And not attempting to eat as he is not hungry, Psych eval pending no clear GI source as cause of problems PHYSICAL EXAMINATION: GENERAL: Obese, alert & oriented x 3, in no acute distress SKIN: No lesions. EYES: Pupils equal reactive to light, no discharge. EARS/NOSE AND THROAT: Ears normal. NECK: Supple CHEST: Inspection within normal limits. CARDIOVASCULAR: Heart: Regular rate and rhythm RESPIRATORY: Lungs clear to auscultation GASTROINTESTINAL AND LIVER: Abdomen: Soft, non tenderness, non-distended, no hernias, no masses, no organomegaly, no ascites, no guarding, no rebound tenderness, normoactive bowel sounds. Rectal: Deferred. EXTREMITIES: No cyanosis, clubbing or edema Result Diagram: 04/29/18 0459 04/29/18 0459 Results 24hrs Laboratory Tests Test 04/29/18 04:59 White Blood Count 9.6 Red Blood Count 4.48 L Hemoglobin 14.9 Hematocrit 43.5 Mean Corpuscular Volume 97.1 Mean Corpuscular Hemoglobin 33.3 H Mean Corpuscular Hemoglobin Concent 34.3 Red Cell Distribution Width 13.3 Platelet Count 136 L Mean Platelet Volume 11.8 H Immature Granulocytes % 0.300 Neutrophils % 68.8 Lymphocytes % 15.6 Monocytes % 14.2 H Eosinophils % 0.8 Basophils % 0.3 Nucleated Red Blood Cells % 0.0 Immature Granulocytes # 0.030 Neutrophils # 6.6 Lymphocytes # 1.5 Monocytes # 1.4 H Eosinophils # 0.1 Basophils # 0.0 Nucleated Red Blood Cells # 0.0 Sodium Level 138 Potassium Level 4.1 Chloride Level 102 Carbon Dioxide Level 25 Anion Gap 11 Blood Urea Nitrogen 2 L Creatinine 0.79 Est Glomerular Filtrat Rate mL/min > 60 Glucose Level 97 Calcium Level 9.0 Phosphorus Level 2.3 L Magnesium Level 1.6 L Exam/Review of Systems Exam Vitals Vital Signs Date Temp Pulse Resp B/P (MAP) Pulse Ox O2 O2 Flow FiO2 Time Delivery Rate 04/29/18 98.3 80 18 108/55 99 Room Air 07:12 (72) Intake and Output 04/28/18 04/28/18 04/29/18 1515:00 23:00 07:00 IntakeIntake Total 750 ml 1300 ml 1500 ml OutputOutput Total 20 ml BalanceBalance 750 ml 1300 ml 1480 ml Results Results 24hrs Laboratory Tests Test 04/29/18 04:59 White Blood Count 9.6 Red Blood Count 4.48 L Hemoglobin 14.9 Hematocrit 43.5 Mean Corpuscular Volume 97.1 Mean Corpuscular Hemoglobin 33.3 H Mean Corpuscular Hemoglobin Concent 34.3 Red Cell Distribution Width 13.3 Platelet Count 136 L Mean Platelet Volume 11.8 H Immature Granulocytes % 0.300 Neutrophils % 68.8 Lymphocytes % 15.6 Monocytes % 14.2 H Eosinophils % 0.8 Basophils % 0.3 Nucleated Red Blood Cells % 0.0 Immature Granulocytes # 0.030 Neutrophils # 6.6 Lymphocytes # 1.5 Monocytes # 1.4 H Eosinophils # 0.1 Basophils # 0.0 Nucleated Red Blood Cells # 0.0 Sodium Level 138 Potassium Level 4.1 Chloride Level 102 Carbon Dioxide Level 25 Anion Gap 11 Blood Urea Nitrogen 2 L Creatinine 0.79 Est Glomerular Filtrat Rate mL/min > 60 Glucose Level 97 Calcium Level 9.0 Phosphorus Level 2.3 L Magnesium Level 1.6 L Medications Medication Current Medications IV Flush (NS 3 ml) 3 ml PER PROTOCOL IV ; Start 04/23/18 at 01:00 Ondansetron HCl (Zofran Inj) 4 mg Q6H PRN IV NAUSEA/VOMITING Last administered on 04/29/18 00:08; Admin Dose 4 MG; Start 04/23/18 at 01:00 Acetaminophen (Tylenol Tab) 650 mg Q6H PRN PO .PAIN 1-3 OR TEMP; Start 04/23/18 at 01:00 Albuterol/ Ipratropium (Duoneb) 3 ml Q2H RESP THERAPY PRN HHN SHORTNESS OF BREATH; Start 04/23/18 at 01:00 Pantoprazole (Protonix Iv) 40 mg BID@06,18 IV Last administered on 04/29/18 05:55; Admin Dose 40 MG; Start 04/23/18 at 09:30 Potassium Chloride/Dextrose/ Sod Cl 1,000 ml @ 125 mls/hr Q8H IV Last administered on 04/29/18 07:47; Admin Dose 125 MLS/HR; Start 04/23/18 at 15:30 Metoclopramide HCl (Reglan) 10 mg Q6H IV Last administered on 04/29/18 05:15; Admin Dose 10 MG; Start 04/24/18 at 17:30 Sucralfate (Carafate Susp) 1 gm QID PO Last administered on 04/28/18 21:37; Admin Dose 1 GM; Start 04/25/18 at 13:00 Prochlorperazine (Compazine Inj) 10 mg Q4H PRN IV NAUSEA AND/OR VOMITING Last administered on 04/28/18 14:54; Admin Dose 10 MG; Start 04/28/18 at 14:00 Magnesium Sulfate 50 ml @ 25 mls/hr ONCE ONCE IVPB ; Start 04/29/18 at 12:30; Stop 04/29/18 at 14:29 SANDRA MATHIAS Apr 29, 2018 13:10
[2018-04-29] MEDS: PROCHLORPERAZINE 10 MG INJ IV PRN (14:11)
[2018-04-29 15:20] VITALS: BP 109/52; PULSE 69; RESP 18
--- NOTE | 2018-04-29 16:11 | PN ---
Date/Time of Note Date/Time of Note DATE: 04/29/18 TIME: 16:06 Assessment/Plan VTE Prophylaxis Risk score (from Ns)>0 risk: 1 SCD applied (from Ns): No SCD contraindicated: low risk/ambulating Pharmacological prophylaxis: NA/contraindicated Pharm contraindication: low risk/ambulating Lines/Catheters [facility] ([facility] Peripheral IV Urinary Cath still in place: No Assessment/Plan Assessment/Plan 1. Persistent retching with minimal vomiting - GI on board and no GI etiology appreciated. Psych consultation pending. Refused telepsych and would like to wait for LUIS ENRIQUE Braun - Found with ulcerative gastritis in the past and on PPI and carafate as well as antiemetic with no relief - Patient unable to tolerate barium for swallow eval, - CT abdomen pelvis without acute findings - continue on IVF 2. Electrolyte derangement - Replete as needed 3. Disposition - Awaiting psych recommendations - continue current treatment. Will d/c when tolerating diet and retching resolves Result Diagram: 04/29/18 0459 04/29/18 0459 Results 24hrs Laboratory Tests Test 04/29/18 04:59 White Blood Count 9.6 Red Blood Count 4.48 L Hemoglobin 14.9 Hematocrit 43.5 Mean Corpuscular Volume 97.1 Mean Corpuscular Hemoglobin 33.3 H Mean Corpuscular Hemoglobin Concent 34.3 Red Cell Distribution Width 13.3 Platelet Count 136 L Mean Platelet Volume 11.8 H Immature Granulocytes % 0.300 Neutrophils % 68.8 Lymphocytes % 15.6 Monocytes % 14.2 H Eosinophils % 0.8 Basophils % 0.3 Nucleated Red Blood Cells % 0.0 Immature Granulocytes # 0.030 Neutrophils # 6.6 Lymphocytes # 1.5 Monocytes # 1.4 H Eosinophils # 0.1 Basophils # 0.0 Nucleated Red Blood Cells # 0.0 Sodium Level 138 Potassium Level 4.1 Chloride Level 102 Carbon Dioxide Level 25 Anion Gap 11 Blood Urea Nitrogen 2 L Creatinine 0.79 Est Glomerular Filtrat Rate mL/min > 60 Glucose Level 97 Calcium Level 9.0 Phosphorus Level 2.3 L Magnesium Level 1.6 L Subjective 24 Hr Interval Summary Free Text/Dictation Patient still with retching but minimal vomiting. Patient has vague symptoms and states IV line is causing his arm to feel cold which is exacerbating his symptoms. When discussed warming up the arm, he states sitting next to the window was helping. Denies any abdominal pain. Exam/Review of Systems Exam Vitals Vital Signs Date Temp Pulse Resp B/P (MAP) Pulse Ox O2 O2 Flow FiO2 Time Delivery Rate 04/29/18 98.2 69 18 109/52 99 Room Air 15:20 (71) Intake and Output 04/28/18 04/28/18 04/29/18 1515:00 23:00 07:00 IntakeIntake Total 750 ml 1300 ml 1500 ml OutputOutput Total 20 ml BalanceBalance 750 ml 1300 ml 1480 ml Exam General: Patient is sitting in chair, mild distress secondary to nausea Neck: Supple, nontender, midline Respiratory: Clear to auscultation bilaterally. no wheezing Cardiovascular: regular rate and rhythm, no obvious murmurs Gastrointestinal: non-tender to palpation, bowel sounds heard. Neurological: Moves all extremities spontaneously Skin: No new skin lesions Results Results 24hrs Laboratory Tests Test 04/29/18 04:59 White Blood Count 9.6 Red Blood Count 4.48 L Hemoglobin 14.9 Hematocrit 43.5 Mean Corpuscular Volume 97.1 Mean Corpuscular Hemoglobin 33.3 H Mean Corpuscular Hemoglobin Concent 34.3 Red Cell Distribution Width 13.3 Platelet Count 136 L Mean Platelet Volume 11.8 H Immature Granulocytes % 0.300 Neutrophils % 68.8 Lymphocytes % 15.6 Monocytes % 14.2 H Eosinophils % 0.8 Basophils % 0.3 Nucleated Red Blood Cells % 0.0 Immature Granulocytes # 0.030 Neutrophils # 6.6 Lymphocytes # 1.5 Monocytes # 1.4 H Eosinophils # 0.1 Basophils # 0.0 Nucleated Red Blood Cells # 0.0 Sodium Level 138 Potassium Level 4.1 Chloride Level 102 Carbon Dioxide Level 25 Anion Gap 11 Blood Urea Nitrogen 2 L Creatinine 0.79 Est Glomerular Filtrat Rate mL/min > 60 Glucose Level 97 Calcium Level 9.0 Phosphorus Level 2.3 L Magnesium Level 1.6 L Medications Medication Current Medications IV Flush (NS 3 ml) 3 ml PER PROTOCOL IV ; Start 04/23/18 at 01:00 Ondansetron HCl (Zofran Inj) 4 mg Q6H PRN IV NAUSEA/VOMITING Last administered on 04/29/18at 00:08; Admin Dose 4 MG; Start 04/23/18 at 01:00 Acetaminophen (Tylenol Tab) 650 mg Q6H PRN PO .PAIN 1-3 OR TEMP; Start 04/23/18 at 01:00 Albuterol/ Ipratropium (Duoneb) 3 ml Q2H RESP THERAPY PRN HHN SHORTNESS OF BREATH; Start 04/23/18 at 01:00 Pantoprazole (Protonix Iv) 40 mg BID@06,18 IV Last administered on 04/29/18at 05:55; Admin Dose 40 MG; Start 04/23/18 at 09:30 Potassium Chloride/Dextrose/ Sod Cl 1,000 ml @ 125 mls/hr Q8H IV Last administered on 04/29/18 07:47; Admin Dose 125 MLS/HR; Start 04/23/18 at 15:30 Metoclopramide HCl (Reglan) 10 mg Q6H IV Last administered on 04/29/18at 05:15; Admin Dose 10 MG; Start 04/24/18 at 17:30 Sucralfate (Carafate Susp) 1 gm QID PO Last administered on 04/28/18at 21:37; Admin Dose 1 GM; Start 04/25/18 at 13:00 Prochlorperazine (Compazine Inj) 10 mg Q4H PRN IV NAUSEA AND/OR VOMITING Last administered on 04/29/18 14:11; Admin Dose 10 MG; Start 04/28/18 at 14:00 JACKIE TORRES MD Apr 29, 2018 16:11
[2018-04-29] MEDS ORDERED: SALINE 0.65% 45 ML NAS SPRAY NASAL PRN (16:30)
[2018-04-29 19:14] VITALS: BP 112/60; PULSE 70; RESP 16
[2018-04-30 01:19] VITALS: BP 122/59; PULSE 78; RESP 16
[2018-04-30] MEDS: D5W-0.45 NACL + KCL 20 MEQ 1,000 ML IV SCH ×3 (04:18→21:30)
[2018-04-30] MEDS: METOCLOPRAMIDE 10 MG INJ IV SCH ×5 (05:30→21:30)
[2018-04-30] MEDS: PANTOPRAZOLE 40 MG INJ IV SCH ×2 (06:00→17:55)
[2018-04-30 07:25] VITALS: BP 116/80; PULSE 80; RESP 18
[2018-04-30] MEDS: SUCRALFATE (100 MG/ML) 10ML CUP PO SCH ×4 (08:40→21:00)
--- NOTE | 2018-04-30 09:12 | PN ---
Date/Time of Note Date/Time of Note DATE: 04/30/18 TIME: 09:12 Assessment/Plan VTE Prophylaxis Risk score (from Ns)>0 risk: 1 SCD applied (from Ns): Yes Pharmacological prophylaxis: NA/contraindicated Pharm contraindication: low risk/ambulating Lines/Catheters IV Catheter Type (from Nrs): Peripheral IV Urinary Cath still in place: No Assessment/Plan Assessment/Plan 1. Persistent retching with minimal vomiting - Patient still refusing all medications and states has diminished hungry. At this point, appears to be more psych related - GI signed off given patient continues to refuse intervention. Appreciate consultation - Refused telepsych and would like to wait for LUIS ENRIQUE Braun - Found with ulcerative gastritis in the past and recommended PPI and Carafate which he is refusing since exacerbating nausea - Patient unable to tolerate barium for swallow eval, - CT abdomen pelvis without acute findings - continue on IVF 2. Electrolyte derangement - Replete as needed 3. Disposition - Awaiting psych recommendations - continue current treatment. Will d/c when tolerating diet and retching resolves Result Diagram: 04/30/18 0436 04/30/18 0436 Results 24hrs Laboratory Tests Test 04/30/18 04:36 White Blood Count 9.8 Red Blood Count 4.52 L Hemoglobin 14.7 Hematocrit 43.8 Mean Corpuscular Volume 96.9 Mean Corpuscular Hemoglobin 32.5 Mean Corpuscular Hemoglobin Concent 33.6 Red Cell Distribution Width 13.1 Platelet Count 142 Mean Platelet Volume 12.6 H Immature Granulocytes % 0.500 H Neutrophils % 67.4 Lymphocytes % 17.1 Monocytes % 13.9 H Eosinophils % 0.8 Basophils % 0.3 Nucleated Red Blood Cells % 0.0 Immature Granulocytes # 0.050 H Neutrophils # 6.6 Lymphocytes # 1.7 Monocytes # 1.4 H Eosinophils # 0.1 Basophils # 0.0 Nucleated Red Blood Cells # 0.0 Sodium Level 138 Potassium Level 3.8 Chloride Level 103 Carbon Dioxide Level 21 Anion Gap 14 H Blood Urea Nitrogen 3 L Creatinine 0.68 Glucose Level 94 Calcium Level 9.0 Phosphorus Level 2.7 Magnesium Level 2.1 Albumin 3.7 Subjective 24 Hr Interval Summary Free Text/Dictation Patient still with nausea and vomiting. States he has no appetite but has been drinking juices. He is refusing antiemetic and when offered increased dosages he is refusing. Also refusing PPI and Carafate which he was explained will help with gastritis. Pending psych evaluation Exam/Review of Systems Exam Vitals Vital Signs Date Temp Pulse Resp B/P (MAP) Pulse Ox O2 O2 Flow FiO2 Time Delivery Rate 04/30/18 97.6 80 18 116/80 96 Room Air 07:25 (92) 04/29/18 2.0 18:13 Intake and Output 04/29/18 04/29/18 04/30/18 1515:00 23:00 07:00 IntakeIntake Total 750 ml 1060 ml 1250 ml BalanceBalance 750 ml 1060 ml 1250 ml Exam General: Patient standing over sink, mild distress secondary to nausea Neck: Supple, nontender, midline Respiratory: Clear to auscultation bilaterally. no wheezing Cardiovascular: regular rate and rhythm, no obvious murmurs Gastrointestinal: non-tender to palpation, bowel sounds heard. Neurological: Moves all extremities spontaneously Psych: flat affect Skin: No new skin lesions Results Results 24hrs Laboratory Tests Test 04/30/18 04:36 White Blood Count 9.8 Red Blood Count 4.52 L Hemoglobin 14.7 Hematocrit 43.8 Mean Corpuscular Volume 96.9 Mean Corpuscular Hemoglobin 32.5 Mean Corpuscular Hemoglobin Concent 33.6 Red Cell Distribution Width 13.1 Platelet Count 142 Mean Platelet Volume 12.6 H Immature Granulocytes % 0.500 H Neutrophils % 67.4 Lymphocytes % 17.1 Monocytes % 13.9 H Eosinophils % 0.8 Basophils % 0.3 Nucleated Red Blood Cells % 0.0 Immature Granulocytes # 0.050 H Neutrophils # 6.6 Lymphocytes # 1.7 Monocytes # 1.4 H Eosinophils # 0.1 Basophils # 0.0 Nucleated Red Blood Cells # 0.0 Sodium Level 138 Potassium Level 3.8 Chloride Level 103 Carbon Dioxide Level 21 Anion Gap 14 H Blood Urea Nitrogen 3 L Creatinine 0.68 Glucose Level 94 Calcium Level 9.0 Phosphorus Level 2.7 Magnesium Level 2.1 Albumin 3.7 Medications Medication Current Medications IV Flush (NS 3 ml) 3 ml PER PROTOCOL IV ; Start 04/23/18 at 01:00 Ondansetron HCl (Zofran Inj) 4 mg Q6H PRN IV NAUSEA/VOMITING Last administered on 04/29/18at 00:08; Admin Dose 4 MG; Start 04/23/18 at 01:00 Acetaminophen (Tylenol Tab) 650 mg Q6H PRN PO .PAIN 1-3 OR TEMP; Start 04/23/18 at 01:00 Albuterol/ Ipratropium (Duoneb) 3 ml Q2H RESP THERAPY PRN HHN SHORTNESS OF BREATH; Start 04/23/18 at 01:00 Pantoprazole (Protonix Iv) 40 mg BID@06,18 IV Last administered on 04/29/18 05:55; Admin Dose 40 MG; Start 04/23/18 at 09:30 Potassium Chloride/Dextrose/ Sod Cl 1,000 ml @ 125 mls/hr Q8H IV Last administered on 04/30/18 04:18; Admin Dose 125 MLS/HR; Start 04/23/18 at 15:30 Metoclopramide HCl (Reglan) 10 mg Q6H IV Last administered on 04/29/18 05:15; Admin Dose 10 MG; Start 04/24/18 at 17:30 Sucralfate (Carafate Susp) 1 gm QID PO Last administered on 04/28/18at 21:37; Admin Dose 1 GM; Start 04/25/18 at 13:00 Prochlorperazine (Compazine Inj) 10 mg Q4H PRN IV NAUSEA AND/OR VOMITING Last administered on 04/29/18 14:11; Admin Dose 10 MG; Start 04/28/18 at 14:00 Sodium Chloride (Deep Sea) 2 spray Q4H PRN NASAL congestion; Start 04/29/18 at 16:30 JACKIE TORRES MD Apr 30, 2018 09:12
--- NOTE | 2018-04-30 13:05 | PN ---
Date/Time of Note Date/Time of Note DATE: 04/30/18 TIME: 13:02 Assessment/Plan VTE Prophylaxis Risk score (from Ns)>0 risk: 1 SCD applied (from Ns): Yes Pharmacological prophylaxis: other (scds) Lines/Catheters [facility] Peripheral IV Urinary Cath still in place: No Assessment/Plan Hospital Course Hospital Course Assessment: Persistent nausea/vomiting - questionable psychogenic component EGD 04/24/18 Mild distal esophagitis Moderate erosive gastritis. Bx is negative for H. pylori infection Otherwise normal EGD Obesity Possible diagnosis of autism Plan: Psychiatric eval pending. Continue PPI BID Patient refusing Carafate Refusing anti-emetics Advance diet as tolerated no new recommendations, GI will sign off but will be available upon reconsult as needed Patient seen in collaboration with Dr. Alfonso Subjective: Course reviewed with nursing staff Patient interviewed and examined All labs, imaging and other results reviewed Pt resting in bed, discussed importance of taking PPI as rx given EGD findings Psych eval pending, family at bedside. PHYSICAL EXAMINATION: GENERAL: Obese, alert & oriented x 3, in no acute distress SKIN: No lesions. EYES: Pupils equal reactive to light, no discharge. EARS/NOSE AND THROAT: Ears normal. NECK: Supple CHEST: Inspection within normal limits. CARDIOVASCULAR: Heart: Regular rate and rhythm RESPIRATORY: Lungs clear to auscultation GASTROINTESTINAL AND LIVER: Abdomen: Soft, non tenderness, non-distended, no hernias, no masses, no organomegaly, no ascites, no guarding, no rebound tenderness, normoactive bowel sounds. Rectal: Deferred. EXTREMITIES: No cyanosis, clubbing or edema Result Diagram: 04/30/18 0436 04/30/18 0436 Results 24hrs Laboratory Tests Test 04/30/18 04:36 White Blood Count 9.8 Red Blood Count 4.52 L Hemoglobin 14.7 Hematocrit 43.8 Mean Corpuscular Volume 96.9 Mean Corpuscular Hemoglobin 32.5 Mean Corpuscular Hemoglobin Concent 33.6 Red Cell Distribution Width 13.1 Platelet Count 142 Mean Platelet Volume 12.6 H Immature Granulocytes % 0.500 H Neutrophils % 67.4 Lymphocytes % 17.1 Monocytes % 13.9 H Eosinophils % 0.8 Basophils % 0.3 Nucleated Red Blood Cells % 0.0 Immature Granulocytes # 0.050 H Neutrophils # 6.6 Lymphocytes # 1.7 Monocytes # 1.4 H Eosinophils # 0.1 Basophils # 0.0 Nucleated Red Blood Cells # 0.0 Sodium Level 138 Potassium Level 3.8 Chloride Level 103 Carbon Dioxide Level 21 Anion Gap 14 H Blood Urea Nitrogen 3 L Creatinine 0.68 Glucose Level 94 Calcium Level 9.0 Phosphorus Level 2.7 Magnesium Level 2.1 Albumin 3.7 Exam/Review of Systems Exam Vitals Vital Signs Date Temp Pulse Resp B/P (MAP) Pulse Ox O2 O2 Flow FiO2 Time Delivery Rate 04/30/18 97.6 80 18 116/80 96 Room Air 07:25 (92) 04/29/18 2.0 18:13 Intake and Output 04/29/18 04/29/18 04/30/18 1515:00 23:00 07:00 IntakeIntake Total 750 ml 1060 ml 1250 ml BalanceBalance 750 ml 1060 ml 1250 ml Results Results 24hrs Laboratory Tests Test 04/30/18 04:36 White Blood Count 9.8 Red Blood Count 4.52 L Hemoglobin 14.7 Hematocrit 43.8 Mean Corpuscular Volume 96.9 Mean Corpuscular Hemoglobin 32.5 Mean Corpuscular Hemoglobin Concent 33.6 Red Cell Distribution Width 13.1 Platelet Count 142 Mean Platelet Volume 12.6 H Immature Granulocytes % 0.500 H Neutrophils % 67.4 Lymphocytes % 17.1 Monocytes % 13.9 H Eosinophils % 0.8 Basophils % 0.3 Nucleated Red Blood Cells % 0.0 Immature Granulocytes # 0.050 H Neutrophils # 6.6 Lymphocytes # 1.7 Monocytes # 1.4 H Eosinophils # 0.1 Basophils # 0.0 Nucleated Red Blood Cells # 0.0 Sodium Level 138 Potassium Level 3.8 Chloride Level 103 Carbon Dioxide Level 21 Anion Gap 14 H Blood Urea Nitrogen 3 L Creatinine 0.68 Glucose Level 94 Calcium Level 9.0 Phosphorus Level 2.7 Magnesium Level 2.1 Albumin 3.7 Medications Medication Current Medications IV Flush (NS 3 ml) 3 ml PER PROTOCOL IV ; Start 04/23/18 at 01:00 Ondansetron HCl (Zofran Inj) 4 mg Q6H PRN IV NAUSEA/VOMITING Last administered on 04/29/18at 00:08; Admin Dose 4 MG; Start 04/23/18 at 01:00 Acetaminophen (Tylenol Tab) 650 mg Q6H PRN PO .PAIN 1-3 OR TEMP; Start 04/23/18 at 01:00 Albuterol/ Ipratropium (Duoneb) 3 ml Q2H RESP THERAPY PRN HHN SHORTNESS OF BR EATH; Start 04/23/18 at 01:00 Pantoprazole (Protonix Iv) 40 mg BID@06,18 IV Last administered on 04/29/18 05:55; Admin Dose 40 MG; Start 04/23/18 at 09:30 Potassium Chloride/Dextrose/ Sod Cl 1,000 ml @ 125 mls/hr Q8H IV Last administered on 04/30/18 04:18; Admin Dose 125 MLS/HR; Start 04/23/18 at 15:30 Metoclopramide HCl (Reglan) 10 mg Q6H IV Last administered on 04/29/18 05:15; Admin Dose 10 MG; Start 04/24/18 at 17:30 Sucralfate (Carafate Susp) 1 gm QID PO Last administered on 04/28/18at 21:37; Admin Dose 1 GM; Start 04/25/18 at 13:00 Prochlorperazine (Compazine Inj) 10 mg Q4H PRN IV NAUSEA AND/OR VOMITING Last administered on 04/29/18 14:11; Admin Dose 10 MG; Start 04/28/18 at 14:00 Sodium Chloride (Deep Sea) 2 spray Q4H PRN NASAL congestion; Start 04/29/18 at 16:30 SANDRA MATHIAS Apr 30, 2018 13:05
[2018-04-30 14:33] VITALS: BP 124/58; PULSE 76; RESP 18
--- NOTE | 2018-04-30 17:38 | PSY ---
Date/Time of Note Date/Time of Note DATE: 04/30/18 TIME: 17:28 Psychiatric Subjective Eval Consent Pt consented to telemedicine: No Subjective Evaluation Patient location: inpatient Chief Complaint: vomiting since 03/30/18; was seen @ [facility] History of present illness Patient is a 23-year-old male admitted for abdominal pain, nausea, vomiting. On a face to face evaluation, patient denies feeling depressed, denies anxiety,denies states his problem is not psychiatry but medical. Patient states he is not depressed and not willing to take medication for depression and anxiety. Past psychiatric history Denies Hospitalization: other Medical history Problems Medical Problems: (1) Intractable vomiting with nausea Status: Acute Allergies: Coded Allergies: No Known Allergy (Unverified , 04/23/18) Substance Abuse Substance abuse history: No Prior substance abuse treatmen: No Social History Marital status: other DPA/Conservatorship: No Psychiatric Objective Eval Review of Systems: Review of Systems: Not Applicable Physical Examination: Physical Examination: Not Applicable Appetite: Decreased Energy: Decreased Interest: Decreased Mental Status Examination: Appearance: Poor Hygiene Eye Contact: Fair Behavior: Cooperative Speech: Soft AFFECT: Constricted Mood: Depressed Though Process: Linear Laboratory Results Laboratory Tests Test 04/29/18 04:59 04/30/18 04:36 White Blood Count 9.6 10^3/ul 9.8 10^3/ul Red Blood Count 4.48 10^6/ul 4.52 10^6/ul Hemoglobin 14.9 g/dl 14.7 g/dl Hematocrit 43.5 % 43.8 % Mean Corpuscular Volume 97.1 fl 96.9 fl Mean Corpuscular Hemoglobin 33.3 pg 32.5 pg Mean Corpuscular Hemoglobin Concent 34.3 g/dl 33.6 g/dl Red Cell Distribution Width 13.3 % 13.1 % Platelet Count 136 10^3/UL 142 10^3/UL Mean Platelet Volume 11.8 fl 12.6 fl Immature Granulocytes % 0.300 % 0.500 % Neutrophils % 68.8 % 67.4 % Lymphocytes % 15.6 % 17.1 % Monocytes % 14.2 % 13.9 % Eosinophils % 0.8 % 0.8 % Basophils % 0.3 % 0.3 % Nucleated Red Blood Cells % 0.0 /100WBC 0.0 /100WBC Immature Granulocytes # 0.030 10^3/ul 0.050 10^3/ul Neutrophils # 6.6 10^3/ul 6.6 10^3/ul Lymphocytes # 1.5 10^3/ul 1.7 10^3/ul Monocytes # 1.4 10^3/ul 1.4 10^3/ul Eosinophils # 0.1 10^3/ul 0.1 10^3/ul Basophils # 0.0 10^3/ul 0.0 10^3/ul Nucleated Red Blood Cells # 0.0 10^3/ul 0.0 10^3/ul Sodium Level 138 mmol/L 138 mmol/L Potassium Level 4.1 mmol/L 3.8 mmol/L Chloride Level 102 mmol/L 103 mmol/L Carbon Dioxide Level 25 mmol/L 21 mmol/L Anion Gap 11 14 Blood Urea Nitrogen 2 mg/dl 3 mg/dl Creatinine 0.79 mg/dl 0.68 mg/dl Est Glomerular Filtrat Rate mL/min > 60 mL/min Glucose Level 97 mg/dl 94 mg/dl Calcium Level 9.0 mg/dl 9.0 mg/dl Phosphorus Level 2.3 mg/dl 2.7 mg/dl Magnesium Level 1.6 mg/dl 2.1 mg/dl Albumin 3.7 g/dl Assessment and Plan Assessment/Diagnosis Diagnosis Depressive Disorder NOS Recommendation/Plan Medication Management Declines Multiple antipsychotics: No (DOES NOT MEET CRITERIA FOR 5150 HOLD) Discharge Disposition: Other Legal Status: Voluntary MARIOLA MARTELL NP Apr 30, 2018 17:38
[2018-04-30 19:42] VITALS: BP 108/55; PULSE 74; RESP 18
[2018-05-01 02:01] VITALS: BP 108/50; PULSE 70; RESP 18
[2018-05-01] MEDS: D5W-0.45 NACL + KCL 20 MEQ 1,000 ML IV SCH ×3 (05:17→23:15)
[2018-05-01] MEDS: PANTOPRAZOLE 40 MG INJ IV SCH (05:21)
[2018-05-01] MEDS: METOCLOPRAMIDE 10 MG INJ IV SCH ×4 (05:21→23:16)
[2018-05-01 07:33] VITALS: BP 118/55; PULSE 78; RESP 18
--- NOTE | 2018-05-01 08:59 | PN ---
Date/Time of Note Date/Time of Note DATE: 05/01/18 TIME: 08:58 Assessment/Plan VTE Prophylaxis Risk score (from Ns)>0 risk: 1 SCD applied (from Ns): No SCD contraindicated: low risk/ambulating Pharmacological prophylaxis: NA/contraindicated Pharm contraindication: low risk/ambulating Lines/Catheters [facility] Peripheral IV Urinary Cath still in place: No Assessment/Plan Assessment/Plan 1. Gastritis - discussed with patient cough, burning in chest, and "bubble" in chest are all consistent with reflux - Encouraged to take pepcid since not able to tolerate PPI to help with symptoms 2. Depression - Patients symptoms are consistent with depression which appears to be manifesting into the GI symptoms he is experiencing. He states his situation is causing him to feel hopeless and defeated since unable to eat. He has a history of depression in the past and suicidal ideations but currently denies any SI/HI. He mentioned knowing he is overweight and focused on his weight but losing about 25-30 lbs during last admission with N/V. Mother states he has been focused on his weight and has not wanted to eat while at home. - Patient was seen by LUIS ENRIQUE Braun who recommended therapy as outpatient. Discussed case with SW who will provide family with resources 3. Persistent retching with minimal vomiting - most likely secondary to psychiatric issues - GI consultation appreciated and full workup completed - Found with ulcerative gastritis in the past and recommended PPI and Carafate which he is refusing - Patient unable to tolerate barium for swallow eval - CT abdomen pelvis without acute findings - continue on IVF 4. Disposition - Discussion held with patient regarding goals of care - patient knows he is not receiving any active treatment and discussed needing outpatient psych treatment. SW to discuss options with Aparna as well as patient and determine discharge planning following these discussions. Result Diagram: 04/30/18 0436 04/30/18 0436 Subjective 24 Hr Interval Summary Free Text/Dictation Patient still complains of persistent nausea with PO intake. Spent 30 minutes with patient and he kept expression feelings of hopelessness and despair given medical condition. He admits to depression and eating disorder given he was 300 lbs and after his last episode of N/V dropped to 275. Patient remains with flat affect and tearful during conversation. Exam/Review of Systems Exam Vitals Vital Signs Date Temp Pulse Resp B/P (MAP) Pulse Ox O2 O2 Flow FiO2 Time Delivery Rate 05/01/18 98.0 78 18 118/55 97 Room Air 07:33 (76) 04/29/18 2.0 18:13 Intake and Output 04/30/18 04/30/18 05/01/18 1515:00 23:00 07:00 IntakeIntake Total 790 ml 1000 ml 1050 ml BalanceBalance 790 ml 1000 ml 1050 ml Exam General: Patient sitting in chair near window, tearful and depressed Neck: Supple, nontender, midline Respiratory: Clear to auscultation bilaterally. no wheezing Cardiovascular: regular rate and rhythm, no obvious murmurs Gastrointestinal: non-tender to palpation, bowel sounds heard. Neurological: Moves all extremities spontaneously Psych: flat affect,depressed Skin: No new skin lesions Medications Medication Current Medications IV Flush (NS 3 ml) 3 ml PER PROTOCOL IV ; Start 04/23/18 at 01:00 Ondansetron HCl (Zofran Inj) 4 mg Q6H PRN IV NAUSEA/VOMITING Last administered on 04/29/18at 00:08; Admin Dose 4 MG; Start 04/23/18 at 01:00 Acetaminophen (Tylenol Tab) 650 mg Q6H PRN PO .PAIN 1-3 OR TEMP; Start 04/23/18 at 01:00 Albuterol/ Ipratropium (Duoneb) 3 ml Q2H RESP THERAPY PRN HHN SHORTNESS OF BREATH; Start 04/23/18 at 01:00 Pantoprazole (Protonix Iv) 40 mg BID@06,18 IV Last administered on 04/30/18at 17:55; Admin Dose 40 MG; Start 04/23/18 at 09:30 Potassium Chloride/Dextrose/ Sod Cl 1,000 ml @ 125 mls/hr Q8H IV Last administered on 05/01/18 05:17; Admin Dose 125 MLS/HR; Start 04/23/18 at 15:30 Metoclopramide HCl (Reglan) 10 mg Q6H IV Last administered on 04/30/18 21:30; Admin Dose 10 MG; Start 04/24/18 at 17:30 Sucralfate (Carafate Susp) 1 gm QID PO Last administered on 04/28/18 21:37; Admin Dose 1 GM; Start 2/28/19 at 13:00 Prochlorperazine (Compazine Inj) 10 mg Q4H PRN IV NAUSEA AND/OR VOMITING Last administered on 04/29/18at 14:11; Admin Dose 10 MG; Start 04/28/18 at 14:00 Sodium Chloride (Deep Sea) 2 spray Q4H PRN NASAL congestion; Start 04/29/18 at 16:30 JACKIE TORRES MD May 01, 2018 08:58
[2018-05-01] MEDS: SUCRALFATE (100 MG/ML) 10ML CUP PO SCH ×5 (09:00→21:00)
[2018-05-01 14:32] VITALS: BP 129/59; PULSE 83; RESP 18
[2018-05-01] MEDS: FAMOTIDINE 20 MG INJ IV SCH ×2 (17:18→20:39)
[2018-05-01 19:55] VITALS: BP 119/58; PULSE 81; RESP 20
[2018-05-01] MEDS: LORAZEPAM 2 MG INJ IV SCH (20:55)
[2018-05-01] MEDS ORDERED: FAMOTIDINE 20 MG INJ IV SCH (21:00)
[2018-05-02 01:18] VITALS: BP 118/60; PULSE 80; RESP 17
[2018-05-02] MEDS: METOCLOPRAMIDE 10 MG INJ IV SCH ×2 (04:40→11:30)
[2018-05-02] MEDS: D5W-0.45 NACL + KCL 20 MEQ 1,000 ML IV SCH ×2 (06:22→07:14)
[2018-05-02 08:08] VITALS: BP 118/60; PULSE 67; RESP 18
[2018-05-02] MEDS: SUCRALFATE (100 MG/ML) 10ML CUP PO SCH ×2 (09:00→13:00)
[2018-05-02] MEDS: LORAZEPAM 2 MG INJ IV SCH ×2 (09:00→13:00)
--- NOTE | 2018-05-02 09:12 | PN ---
Date/Time of Note Date/Time of Note DATE: 05/02/18 TIME: 09:12 Assessment/Plan VTE Prophylaxis Risk score (from Nsg)>0 risk: 1 SCD applied (from Nsg): Yes Pharmacological prophylaxis: NA/contraindicated Pharm contraindication: low risk/ambulating Lines/Catheters IV Catheter Type (from Nrsg): Peripheral IV Urinary Cath still in place: No Assessment/Plan Assessment/Plan 1. Gastritis - has been agreeable to pepcid during hospitalization. Encouraged to continue a s outpatient 2. Depression - Patient was in denial yesterday about diagnosis but states he does feel like he may be depressed after thinking about his situation over night - Discussed therapy as outpatient and given resources by wool batting worker. Still refusing medications to help stabilize mood - GI symptoms seem to be a manifestation of his depression - Patient was seen by LUIS ENRIQUE Braun who recommended therapy as outpatient. Discussed case with SW who will provide family with resources 3. Persistent retching with minimal vomiting - most likely secondary to psychiatric issues - GI consultation appreciated and full workup completed - Found with ulcerative gastritis in the past and recommended PPI and Carafate which he is refusing - Patient unable to tolerate barium for swallow eval - CT abdomen pelvis without acute findings - continue on IVF 4. Disposition - Medically stable for discharge home. Patient states he will try to eat more at home and discussed participating in activities that he enjoys to help with the depression. Also encouraged to follow up with mental health specialist as outpatient Result Diagram: 04/30/18 0436 04/30/18 0436 Subjective 24 Hr Interval Summary Free Text/Dictation Patient states hes feeling better today and notices when he is distracted, does not feel nauseous. Exam/Review of Systems Exam Vitals Vital Signs Date Temp Pulse Resp B/P (MAP) Pulse Ox O2 O2 Flow FiO2 Time Delivery Rate 05/02/18 97.5 67 18 118/60 100 Room Air 08:08 (79) 04/29/18 2.0 18:13 Intake and Output 05/01/18 05/01/18 05/02/18 1414:59 22:59 06:59 IntakeIntake Total 1080 ml 350 ml 1450 ml OutputOutput Total 200 ml BalanceBalance 880 ml 350 ml 1450 ml Exam General: Patient sitting in chair near window, no acute distress Respiratory: Clear to auscultation bilaterally. no wheezing Cardiovascular: regular rate and rhythm, no obvious murmurs Gastrointestinal: non-tender to palpation, bowel sounds heard. Neurological: Moves all extremities spontaneously Psych: flat affect Skin: No new skin lesions Medications Medication Current Medications IV Flush (NS 3 ml) 3 ml PER PROTOCOL IV ; Start 04/23/18 at 01:00 Ondansetron HCl (Zofran Inj) 4 mg Q6H PRN IV NAUSEA/VOMITING Last administered on 04/29/18 00:08; Admin Dose 4 MG; Start 04/23/18 at 01:00 Acetaminophen (Tylenol Tab) 650 mg Q6H PRN PO .PAIN 1-3 OR TEMP; Start 04/23/18 at 01:00 Albuterol/ Ipratropium (Duoneb) 3 ml Q2H RESP THERAPY PRN HHN SHORTNESS OF BREATH; Start 04/23/18 at 01:00 Potassium Chloride/Dextrose/ Sod Cl 1,000 ml @ 125 mls/hr Q8H IV Last administered on 05/02/18 07:14; Admin Dose 125 MLS/HR; Start 04/23/18 at 15:30 Metoclopramide HCl (Reglan) 10 mg Q6H IV Last administered on 04/30/18 21:30; Admin Dose 10 MG; Start 04/24/18 at 17:30 Sucralfate (Carafate Susp) 1 gm QID PO Last administered on 04/28/18 21:37; Admin Dose 1 GM; Start 04/25/18 at 13:00 Prochlorperazine (Compazine Inj) 10 mg Q4H PRN IV NAUSEA AND/OR VOMITING Last administered on 04/29/18 14:11; Admin Dose 10 MG; Start 04/28/18 at 14:00 Sodium Chloride (Deep Sea) 2 spray Q4H PRN NASAL congestion; Start 04/29/18 at 16:30 Lorazepam (Ativan) 1 mg TID IV ; Start 05/01/18 at 21:00 Famotidine (Pepcid Iv) 20 mg BID IV Last administered on 05/01/18 20:39; Admin Dose 20 MG; Start 05/01/18 at 16:00 JACKIE TORRES MD May 02, 2018 09:12
[2018-05-02] MEDS: FAMOTIDINE 20 MG INJ IV SCH (09:25)
[2018-05-02] MEDS ORDERED: FAMO20TA18 PO (11:43)
--- NOTE | 2018-05-02 11:47 | PDOCDIS ---
Discharge Instructions DIAGNOSIS Discharge Diagnosis 1. Gastritis 2. Depression with GI manifestations 3. Persistent vomiting CONDITION [id number] Patient Condition: [id number] Stable HOME CARE INSTRUCTIONS: Ramio3Oz Diet Instructions: [id number] Regular ACTIVITY: [id number] Activity Restrictions: Truyy8m No Restrictions [id number] Bathing Restrictions: [id number] Shower FOLLOW UP/APPOINTMENTS Follow-up Plan 1. Follow up with your primary care physician in 1-2 weeks. If you do not have one, establish care with one at [facility] 2. I highly recommend you follow up with a mental health specialist to help you work through your depressed mood. It is important to try and participate in activities that you enjoy and make you happy while doing. It seems as if your depression may be causing your stomach issues and vomiting. Try to eat foods that you enjoy and do not worry about dieting at this time. I do recommend eating more protein rich foods to help with muscle strength 3. Increase physical activity as you can tolerated 4. Take Pepcid twice a day to help with reflux symptoms 5. If experiencing any concerning symptoms, please go to your closest emergency department JACKIE TORRES MD May 02, 2018 11:47
--- NOTE | 2018-05-02 15:43 | DS ---
Date/Time of Note Date/Time of Note DATE: 05/02/18 TIME: 15:38 Discharge Summary Admission/Discharge Info Admit Date/Time Apr 23, 2018 at 07:42 Discharge Date/Time May 02, 2018 at 13:50 Discharge Diagnosis 1. Gastritis 2. Depression with GI manifestations 3. Persistent vomiting Patient Condition: Stable Consults psychiatry Procedures PROCEDURE: Nuclear medicine gastric emptying study CLINICAL INDICATION: Abdominal pain. Nausea TECHNIQUE: Nuclear medicine gastric emptying study was performed following the uncomplicated ingestion of 1.0 mCi of technetium 99m sulfur colloid. Planar imaging of the abdomen and stomach was performed. Time activity curves were plotted on a graph. Unfortunately, the patient started vomiting at 36 minutes post radiotracer administration, and could not finish the examination. Images were reviewed on a high-resolution PACS workstation. COMPARISON: CT abdomen pelvis 04/22/2018 FINDINGS: Gastric emptying: Normal. The T1/2 emptying time: 21 minutes (normal <90 minutes) Emptying into small bowel: Normal. Gastroparesis or obstruction: None. IMPRESSION: 1. The patient could not complete the 90-minute examination due to severe vomiting after 36 minutes. 2. However, T1/2 was calculated at 21 minutes, within normal limits. 3. There is normal passage of radiotracer from the stomach into the small bowel. RPTAT: PP .Cristino Mohamud MD, Date Time Electronically viewed and signed by .Cristino Mohamud MD, MD on 04/28/2018 09:56 PROCEDURE: CT abdomen and pelvis without contrast. CLINICAL INDICATION: Abdominal pain. TECHNIQUE: CT scan of the abdomen and pelvis without contrast was performed. Sagittal and coronal reformatted images were obtained from the axial source images. DICOM images are available. One or more of the following dose reduction techniques were used: Automated exposure control, adjustment of the mA and/or kV according to patient size, use of iterative reconstruction technique. CTDI = 23.92 mGy; DLP = 1663.57 mGy-cm COMPARISON: None. FINDINGS: Visualized lower thorax: The lung bases are clear. There is no evidence for pleural effusion. Liver, gallbladder, pancreas and spleen: The liver is normal and size, contour and attenuation. There is no evidence for a liver mass or ductal dilatation. Equivocal tiny hyperdense material in the dependent gallbladder lumen unable to exclude gallstones. No common bile duct abnormality is demonstrated. The pancreas is unremarkable. The spleen is normal in size. Adrenal glands and genitourinary system: The adrenal glands are normal bilaterally. The kidneys are normal and size, contour and attenuation with no evidence for masses, calculi or hydronephrosis. The ureters are unremarkable. The urinary bladder is contracted and difficult to evaluate. The prostate gland is within normal limits for size. The visualized scrotum shows no abnormality. Gastrointestinal system: The stomach is normal in caliber with no abnormality of significance. The small bowel is normal in caliber with no ileus, obstruction or wall thickening. The appendix and surrounding fat are within the limits of normal. The colon shows no evidence for wall thickening or acute abnormality. There is no evidence for colitis or diverticulitis. Peritoneum, retroperitoneum, lymph nodes and vessels: The abdominal aorta is normal in caliber. There is no evidence for atherosclerotic calcification. The inferior vena cava is unremarkable. There is no evidence for adenopathy or mass. There is no ascites. No pneumoperitoneum is present Osseous structures and musculoskeletal findings: There is no fracture, lytic or blastic lesion. No muscular abnormality or soft tissue pathology is present. RPTAT:HJJR IMPRESSION: 1. Equivocal tiny gallstones without certain evidence of cholecystitis. 2. The urinary bladder is contracted and difficult to evaluate. 3. The appendix is unremarkable. 4. Remainder of the examination shows no abnormality of significance. Physician Niya Date Time Electronically viewed and signed by Physician Niya on 04/22/2018 23:07 PROCEDURE: XR Chest. CLINICAL INDICATION: Abdominal pain TECHNIQUE: Single frontal view of the chest was obtained COMPARISON: None FINDINGS: The heart and mediastinum are within normal limits. The lungs are clear. There is no pleural effusion or pneumothorax. RPTAT: AA IMPRESSION: No acute disease. .Pavel Littlejohn MD, MD Date Time Electronically viewed and signed by .Pavel Littlejohn MD, on 04/22/2018 22:06 Hx of Present Illness 23-year-old obese male with possible autism here with recurrent intractable nausea vomiting and inability to tolerate p.o. intake Hospital Course Patient was admitted for GI workup given intractable nausea with vomiting. Patient was started on various antiemetics and EGD was performed as well. Patient was found to have gastritis and started on PPI and Carafate but refused medications. He was refusing all treatment except IVF with complaints that it was not helping and exacerbating his symptoms. After discussion, it was determined that patient had underlying depression that was manifesting in nausea with vomiting. Patient was evaluated by Psychiatry but patient was in denial of diagnosis. After another long discussion, patient was agreeable to outpatient counseling and trial of diet at home. His vitals and physical exam remained stable and on day of discharge patient stated his symptoms were improving and was in better spirits. Patient was discharged home in good condition. Home Meds Active Scripts Famotidine* (Famotidine*) 20 Mg Tablet, 20 MG PO BID for 30 Days, #60 TAB 6 Refills Prov:JACKIE TORRES MD 05/02/18 Reported Medications Bismuth Subsalicylate* (Pepto-Bismol*) 262 Mg/15 Ml Oral.susp, 15 ML PO Q3H PRN for DISTENSION/GAS/BLOATING, ML 04/23/18 Follow-up Plan 1. Follow up with your primary care physician in 1-2 weeks. If you do not have one, establish care with one at [facility] 2. I highly recommend you follow up with a mental health specialist to help you work through your depressed mood. It is important to try and participate in activities that you enjoy and make you happy while doing. It seems as if your depression may be causing your stomach issues and vomiting. Try to eat foods that you enjoy and do not worry about dieting at this time. I do recommend eating more protein rich foods to help with muscle strength 3. Increase physical activity as you can tolerated 4. Take Pepcid twice a day to help with reflux symptoms 5. If experiencing any concerning symptoms, please go to your closest emergency department Primary Care Provider Care Physician No Primary Time spent on discharge: > 30 minutes JACKIE TORRES MD May 02, 2018 15:43
== END 2018-05-02 13:50 | disposition home or self-care (01) | DRG 882 ==
LOC: E/R 17:49 → MS1 04-23 00:12 → OBSVTOIN 04-23 07:42
PROVIDERS: ADMIT Internal Medicine; ATTEND Internal Medicine
PROC: 0DB68ZX Excision of Stomach, Via Natural or Artificial Opening Endoscopic, Diagnostic (ICD-10-PCS; principal; 2018-04-24 18:00)
DX: F45.8 Other somatoform disorders (principal); K29.60 Other gastritis without bleeding; F84.0 Autistic disorder; R11.2 Nausea with vomiting, unspecified; E87.8 Other disorders of electrolyte and fluid balance, not elsewhere classified; K20.9 Esophagitis, unspecified; F32.9 Major depressive disorder, single episode, unspecified; E66.01 Morbid (severe) obesity due to excess calories; Z68.38 Body mass index [BMI] 38.0-38.9, adult
CPT/HCPCS: 36415; 36600; 71045; 74176; 78264; 80048; 80053; 80069; 81001; 82803; 83690; 83735; 84100; 85025; 87081; 88305; 88312; 96361; 96374; 96375; A9541; C9113; G0378; J0780; J1644; J2270; J2405; J2765; J3475; J3480; J7030; J7042